=== PATIENT | female | born 1930 | race Caucasian/White ===

== ENCOUNTER 2017-02-11 13:15 | Emergency (ER) | payer OTHER ==
[~2017-02-11] VITALS: Ht 154.9 cm; Wt 54.0 kg
[~2017-02-11 13:15] MED LIST: ADVIN50050 INH; BIMA0.01 OPB; BUME1TAB PO; CLIN300C2 PO; COEN100C28 PO; DIGO0.122 PO; FEXO1TAB46 PO; GLUCTAB7 PO; IPRASOL4 INH; METR1GEL3 TOP; NTRGSL/4 UT; ONDA4TAB46 PO; OXGN; POLY335025 PO; SPIR25TA89 PO; TPRSR50 PO; TRMCR130WC TOP; WARF3TAB PO
[2017-02-11] MEDS ORDERED: SODIUM CHLORIDE 0.9% 1000ML 1,000 ML IV STA (13:39)
[2017-02-11 13:42] VITALS: O2SAT 93
[2017-02-11 13:52] VITALS: TEMP 36.7; Ht 154.9 cm; Wt 54.0 kg
[2017-02-11] MEDS ORDERED: OPTIRAY 320 IV PRN (14:00)
--- NOTE | 2017-02-11 14:05 | DIAGNOSTIC IMAGING REPORT ---
CHEST ONE VIEW PORTABLE CLINICAL HISTORY: EVALUATE FOR TRAUMA/INJURY pain COMPARISON STUDY: No previous studies for comparison. FINDINGS: Moderate stable cardiomegaly. Tortuosity thoracic aorta. Chronic platelike atelectasis left midlung. Lungs otherwise appear clear. IMPRESSION: Stable moderate cardiomegaly. Otherwise negative study Electronically signed by: Carlos Enrique Valentino M.D. 02/11/2017 2:04 PM Dictated Date/Time: 02/11/2017 2:03 PM
--- NOTE | 2017-02-11 14:20 | DIAGNOSTIC IMAGING REPORT ---
LEFT HAND MIN 3 VIEWS ROUTINE CLINICAL HISTORY: left hand pain s/p fall pain COMPARISON: None. DISCUSSION: Severe degenerative change throughout. No acute bony abnormality. Mild soft tissue edema. Study specifically negative for fracture. IMPRESSION: Severe degenerative change. Mild soft tissue edema. No acute bony abnormality. Electronically signed by: Carlos Enrique Valentino M.D. 02/11/2017 2:19 PM Dictated Date/Time: 02/11/2017 2:17 PM
[2017-02-11 14:30] LABS: BASO % 0.5 %; BASO ABS # 0.04 K/uL (0-0.2); COMPLETE YES; EOS % 1.4 %; HEMATOCRIT 40.9 % (37-47); IG% 0.5 %; LYMPH % 17.3 %; LYMPH ABS # 1.27 K/uL (1.2-3.4); MEAN CELL VOLUME 93.6 fL (80-100); MEAN CORPUSCULAR HEMOGLOBIN 31.4 pg (25-34); MEAN CORPUSCULAR HGB CONC 33.5 g/dl (32-36); MEAN PLATELET VOLUME 11.8 fL (7.4-10.4); NEUT % 72.3 %; PLATELET COUNT 157 K/uL (130-400); RED BLOOD COUNT 4.37 M/uL (4.2-5.4); WHITE BLOOD COUNT 7.36 K/uL (4.8-10.8)
[2017-02-11 14:36] LABS: ISTAT CREATININE 0.8 mg/dl (0.6-1.3); ISTAT HEMOGLOBIN 14.6 g/dl (12.0-16.0); ISTAT IONIZED CALCIUM 1.24 mmol/l (1.12-1.32)
[2017-02-11 14:45] LABS: PARTIAL THROMBOPLASTIN RATIO 1.8; PROTHROMBIN TIME (PATIENT) 48.2 SECONDS (9.0-12.0)
[2017-02-11 14:48] LABS: BUN/CREATININE RATIO 25.5 (10-20); CALCIUM 9.1 mg/dl (8.5-10.1); CREATININE 0.81 mg/dl (0.60-1.20)
--- NOTE | 2017-02-11 15:10 | DIAGNOSTIC IMAGING REPORT ---
CT HEAD WITHOUT CONTRAST (CT) CLINICAL HISTORY: Head trauma. Headache. Nausea. Vomiting. COMPARISON STUDY: 06/20/2016 TECHNIQUE: Axial CT of the brain is performed from the vertex to the skull base. IV contrast was not administered for this examination. CT DOSE: FINDINGS: No intra or extra-axial mass lesions are visualized. There is no CT evidence of acute cortical infarction. There is no evidence of midline shift. There is no acute hemorrhage. No calvarial fractures are visualized. There are patchy white matter hypodensities likely on a small vessel basis. There is no evidence of pathologic ventricular dilatation. There is no evidence of acute sinusitis IMPRESSION: No acute intracranial findings Electronically signed by: Iftikhar Davis M.D. 02/11/2017 3:09 PM Dictated Date/Time: 02/11/2017 3:08 PM
--- NOTE | 2017-02-11 15:11 | DIAGNOSTIC IMAGING REPORT ---
CERVICAL SPINE CT CT DOSE: HISTORY: Trauma. Pain. EVALUATE FOR TRAUMA/INJURY TECHNIQUE: Multiaxial CT images of the cervical spine were performed and reformatted in the sagittal and coronal plane without the use of contrast. COMPARISON: None. FINDINGS: No fractures. No subluxation. Prevertebral soft tissues and the C1-C2 interval are intact. No pneumothorax. Degenerative disc change throughout IMPRESSION: No fractures within the cervical spine. Degenerative disc change throughout Electronically signed by: Carlos Enrique Valentino M.D. 02/11/2017 3:10 PM Dictated Date/Time: 02/11/2017 3:09 PM
--- NOTE | 2017-02-11 15:15 | DIAGNOSTIC IMAGING REPORT ---
CT ABD/PELVIS IV CONTRAST ONLY CLINICAL HISTORY: Left-sided abdominal pain status post trauma. Patient on Coumadin. COMPARISON STUDY: 10/25/2014 TECHNIQUE: Following the IV administration of 94 mL of [id number], CT scan of the abdomen and pelvis was performed from the lung bases to the proximal femurs. Images are reviewed in the axial, sagittal, and coronal planes. IV contrast was administered without complication. CT DOSE: 1583.73 mGy.cm FINDINGS: Lower chest: The heart is enlarged. There is mild basilar atelectasis. There are trace pleural effusions. Liver: There is a 14 mm hypodensity within the right hepatic lobe similar to the prior study. This likely represents a cyst. There is no CT evidence of acute hepatic injury. Gallbladder: Surgically absent Spleen: Normal in size and attenuation. Pancreas: Unremarkable. Adrenal glands: Unremarkable. Kidneys: There is no evidence of acute renal injury. No solid renal masses are visualized. There is no hydronephrosis. There is a nonobstructing 2 mm right renal calculus. Bowel: There are no transition zones indicate bowel obstruction. There is mild fecal retention. There is no acute diverticulitis. No acute inflammatory changes are visualized. Peritoneum: There is no intraperitoneal free air or abdominal ascites. Vasculature: The abdominal aorta is normal in course and caliber. Adenopathy: None. Pelvic viscera: The uterus appears surgically absent. Skeletal structures: There are postsurgical changes of a prior left hip pinning. The bones are osteopenic. There is an old severe T12 compression fracture. There is an old T10 vertebral body compression fracture. IMPRESSION: 1. No evidence of acute intra-abdominal or pelvic injury. Electronically signed by: Iftikhar Davis M.D. 02/11/2017 3:13 PM Dictated Date/Time: 02/11/2017 3:09 PM
[2017-02-11 15:32] LABS: INR 4.2 (0.9-1.1)
--- NOTE | 2017-02-11 15:34 | DIAGNOSTIC IMAGING REPORT ---
CHEST CT WITH CONTRAST CT DOSE: HISTORY: Left-sided chest pain. Trauma TECHNIQUE: Multiaxial CT images of the chest were performed following the intravenous administration of contrast. COMPARISON: Chest CT 10/06/2013. FINDINGS: There are severe compression deformities at T10 and T12. The T10 compression deformity demonstrates 4 mm of retropulsion of the posterior inferior corner with mild to moderate central canal narrowing. The T12 compression deformity also demonstrates 4 mm of retropulsion of the posterior superior corner with mild to moderate central canal narrowing. These are unchanged from the 11/20/2015 chest x-ray and are therefore considered to be old. Slight deformity within the left anterior eighth rib. This is consistent within age-indeterminate fracture. No pneumothorax. Punctate calcified granuloma within the left lung apex. Linear density within the lingula and right lower lobe favor subsegmental atelectasis. Mild dependent changes seen at the lung bases. Mosaic attenuation within the lungs suggestive of mild air trapping. A few additional scattered calcified granulomas. Trace pleural effusions. The heart is moderately enlarged. No evidence for an aortic dissection. The main pulmonary arteries are patent. No mediastinal or hilar lymphadenopathy. IMPRESSION: 1. Slight deformity within the left anterior eighth rib consistent with an age-indeterminate fracture. 2. No pneumothorax. 3. Trace bilateral pleural effusions. 4. Old T10 and T12 compression deformities resulting in mild to moderate central canal narrowing due to the retropulsion. This remains unchanged. 5. Moderate cardiomegaly, unchanged. Electronically signed by: Tanner Millan M.D. 02/11/2017 3:32 PM Dictated Date/Time: 02/11/2017 3:21 PM
[2017-02-11] MEDS ORDERED: XYLOCAINE 1%/SOD BICARB 20 ML VIAL INFIL ONE (15:45)
[2017-02-11 17:35] VITALS: BP 132/99; PULSE 72; O2SAT 94
--- NOTE | 2017-02-11 17:37 | EMERGENCY ROOM VISIT NOTE ---
History Report prepared by Mendez: Ilan Taylor Under the Supervision of: Dr. Chano Wagner D.O. First contact with patient: 13:26 Chief Complaint: FALL Stated Complaint: FALL/ RIB PAIN/ KNEE PAIN/ HAND PAIN History of Present Illness The patient is a 86 year old female who presents to the Emergency Room with complaints of a sudden fall occurring prior to arrival. She currently rates her discomfort as a 5/10 in severity. The patient states that she was bending over to get her cane this morning, and she fell and hit her left side and her head. The patient states that she is having left rib pain and a headache which is typical for her. The patient states that she also hit her left knee and left hand. She states that she is currently on Coumadin, and she has had her hip and both knees replaced. Pt denies change in vision, neck pain, fevers, chest pain, shortness of breath, nausea, vomiting, diarrhea, pain with urination, and melena. Source of History: patient Onset: prior to arrival Position: other (global) Quality: other (fall) Timing: other (sudden) Associated Symptoms: + headache, No neck pain Note: Associated symptoms: Left knee, hand, and rib pain Review of Systems See HPI for pertinent positives & negatives. A total of 10 systems reviewed and were otherwise negative. 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 (6) Migraine (7) Nocturnal hypoxemia (8) Osteoporosis (9) Raynaud's phenomenon (10) Right heart failure Surgical Problems: (1) H/O oophorectomy (2) H/O thumb surgery (3) H/O: hysterectomy (4) History of cholecystectomy (5) Hx of cataract surgery (6) S/P appendectomy (7) S/P left knee arthroscopy (8) S/P right knee arthroscopy Family History Brain tumor MOTHER Hodgkin's lymphoma BROTHER Social History Smoking Status: Never Smoker Alcohol Use: none Drug Use: none Marital Status: Housing Status: lives alone Occupation Status: retired Current/Historical Medications Scheduled Bimatoprost (Lumigan), 1 DROP OPB HS Bumetanide (Bumex), 0.5 MG PO DAILY Clindamycin Hcl (Cleocin), 300 MG PO before dental work Coenzyme Q10 (Ubidecarenone) (Co Q10), 100 MG PO DAILY Digoxin (Lanoxin), 0.125 MG PO 5XWK Fexofenadine Hcl (Macarena), 180 MG PO DAILY Fluticasone Prop/Salmeterol (Advair Diskus 500-50 Mcg/Dose), 1 PUFF INH BID Ymnfomiyqrn-Ixiqcywqyhz-Oha C- (Glucosamine Chondroitin), 1 TABLET PO DAILY Ipratropium-Albuterol (Duoneb), 1 TREATMENT INH BID Metoprolol Succinate (Metoprolol Succinate ER), 50 MG PO DAILY Metronidazole Hcl (Metrogel), 1 APPLN TOP QAM Oxygen (Oxygen), 2 LITERS NA HS Polyethylene Glycol 3350 (Miralax), 1 TBS PO BID Spironolactone (Aldactone), 25 MG PO DAILY Warfarin Sodium (Coumadin), 3 MG PO 6XWK Warfarin Sodium (Coumadin), 1.5 MG PO WK Scheduled PRN Ipratropium-Albuterol (Duoneb), 1 TREATMENT INH QID PRN for asthma Nitroglycerin (Nitrostat), 0.4 MG UT UD PRN for Chest Pain Ondansetron Hcl (Zofran), 4 MG PO Q6H PRN for Nausea Triamcinolone Acet (Aristocort 0.1%), 1 APPLN TOP BID PRN for impairment of skin Allergies Coded Allergies: Celecoxib (Verified Allergy, Intermediate, rash, blisters in mouth, eyes itching, 02/11/17) Ciprofloxacin (Verified Allergy, Intermediate, rash, 02/11/17) Famciclovir (Verified Allergy, Intermediate, RASH, 02/11/17) Fluticasone (Verified Allergy, Intermediate, RASH, 02/11/17) Furosemide (Verified Allergy, Intermediate, RASH, 02/11/17) Metaxalone (Verified Allergy, Intermediate, RASH, 02/11/17) RASH Naproxen (Verified Allergy, Intermediate, RASH, 02/11/17) RASH Oxycodone (Verified Allergy, Intermediate, RASH ON NECK, 02/11/17) Sulfa Antibiotics (Verified Allergy, Intermediate, HIVES, 02/11/17) Acetaminophen (Verified Allergy, Mild, RASH, 02/11/17) RASH Carboxymethylcellulose (Verified Allergy, Mild, ITCHINESS AND REDNESS OF EYES, 02/11/17) Levofloxacin (Verified Allergy, Mild, RASH, 02/11/17) RASH PER PT/MIGUEL ON PCU - HAS TAKEN CIPRO IN PAST Aspartame (Verified Allergy, Unknown, 'passed out after taking', 02/11/17) Cefdinir (Verified Allergy, Unknown, unknown, 02/11/17) Diphenhydramine (Verified Allergy, Unknown, 'passed out after taking', 02/11) Penicillins (Verified Allergy, Unknown, RASH, 02/11/17) RASH Potassium Chloride (Verified Allergy, Unknown, RASH, 02/11/17) Pseudoephedrine (Verified Allergy, Unknown, 'passed out after taking', 02/11) Sodium Benzoate (Verified Allergy, Unknown, unknown, 02/11/17) [place] (Unverified Allergy, Unknown, RASH, 02/11/17) Sulfasalazine (Verified Allergy, Unknown, rash, 02/11/17) Tomato (Unverified Allergy, Unknown, RASH, 02/11/17) Valacyclovir (Verified Allergy, Unknown, RASH, 02/11/17) Adhesives (Verified Adverse Reaction, Mild, skin irritation, 02/11/17) Brimonidine (Verified Adverse Reaction, Mild, RED EYES, 02/11/17) RED EYES Brompheniramine (Verified Adverse Reaction, Mild, 'passed out' per pt, 02/11) Ketorolac (Verified Adverse Reaction, Mild, RED EYES, 02/11/17) RED EYES Pneumococcal Vaccines (Verified Adverse Reaction, Mild, LOCAL SWELLING, 02/11/17) Dairy (Verified Adverse Reaction, Unknown, bloating,nausea,diarrhea, ) Lactose (Verified Adverse Reaction, Unknown, GI upset, 02/11/17) Physical Exam Vital Signs Date Time Temp Pulse Resp B/P Pulse Ox O2 Delivery O2 Flow Rate FiO2 02/11/17 15:39 90 16 117/88 94 Room Air 02/11/17 13:52 36.7 87 18 134/88 93 Room Air 02/11/17 13:42 93 Room Air 02/11/17 13:42 93 Room Air 02/11/17 13:27 77 Physical Exam GENERAL: Chronically ill appearing, disheveled HEAD: normal cephalic, atraumatic EYE EXAM: normal conjunctiva, PERRL and EOM's grossly intact OROPHARYNX: no exudate, no erythema, lips, buccal mucosa, and tongue normal and mucous membranes are moist EARS: TMs clear b/l NECK: supple, no nuchal rigidity, no adenopathy, non-tender CHEST: Mild tenderness to palpation in the chest over the left lower ribs. No bruising. Stable to compression anteriorly and posteriorly LUNGS: clear to auscultation. Normal chest wall mechanics HEART: no murmurs, S1 normal and S2 normal ABDOMEN: abdomen soft, non-tender, normo-active bowel sounds, no masses, no rebound or guarding. PELVIS: stable to compression anteriorly and posteriorly BACK: Back is symmetrical on inspection and there is no deformity, no midline tenderness, no CVA tenderness. UPPER EXTREMITIES: Old bruising in the upper extremities. Laceration at the base of the 5th and 4th MCP joint. Full active and passive range of motion of all joints without tenderness to palpation LOWER EXTREMITIES: Old bruising in the lower extremities. Left knee has a 2cm laceration over the patella. Full active and passive range of motion of all joints without tenderness to palpation NEURO EXAM: Normal sensorium, cranial nerves II-XII grossly intact, normal speech, no gross weakness of arms, no gross weakness of legs. GCS: 15. Medical Decision & Procedures ER Provider Diagnostic Interpretation: Xray results per the radiologist and my interpretation. Other results have been interpreted by the radiologist and reviewed by me. CT HEAD WITHOUT CONTRAST (CT) CLINICAL HISTORY: Head trauma. Headache. Nausea. Vomiting. COMPARISON STUDY: 06/20/2016 TECHNIQUE: Axial CT of the brain is performed from the vertex to the skull base. IV contrast was not administered for this examination. CT DOSE: FINDINGS: No intra or extra-axial mass lesions are visualized. There is no CT evidence of acute cortical infarction. There is no evidence of midline shift. There is no acute hemorrhage. No calvarial fractures are visualized. There are patchy white matter hypodensities likely on a small vessel basis. There is no evidence of pathologic ventricular dilatation. There is no evidence of acute sinusitis IMPRESSION: No acute intracranial findings Electronically signed by: Iftikhar Davis M.D. 02/11/2017 3:09 PM Dictated Date/Time: 02/11/2017 3:08 PM CHEST ONE VIEW PORTABLE CLINICAL HISTORY: EVALUATE FOR TRAUMA/INJURY pain COMPARISON STUDY: No previous studies for comparison. FINDINGS: Moderate stable cardiomegaly. Tortuosity thoracic aorta. Chronic platelike atelectasis left midlung. Lungs otherwise appear clear. IMPRESSION: Stable moderate cardiomegaly. Otherwise negative study Electronically signed by: Carlos Enrique Valentino M.D. 02/11/2017 2:04 PM Dictated Date/Time: 02/11/2017 2:[address] WITH CONTRAST CT DOSE: HISTORY: Left-sided chest pain. Trauma TECHNIQUE: Multiaxial CT images of the chest were performed following the intravenous administration of contrast. COMPARISON: Chest CT 10/06/2013. FINDINGS: There are severe compression deformities at T10 and T12. The T10 compression deformity demonstrates 4 mm of retropulsion of the posterior inferior corner with mild to moderate central canal narrowing. The T12 compression deformity also demonstrates 4 mm of retropulsion of the posterior superior corner with mild to moderate central canal narrowing. These are unchanged from the 11/20/2015 chest x-ray and are therefore considered to be old. Slight deformity within the left anterior eighth rib. This is consistent within age-indeterminate fracture. No pneumothorax. Punctate calcified granuloma within the left lung apex. Linear density within the lingula and right lower lobe favor subsegmental atelectasis. Mild dependent changes seen at the lung bases. Mosaic attenuation within the lungs suggestive of mild air trapping. A few additional scattered calcified granulomas. Trace pleural effusions. The heart is moderately enlarged. No evidence for an aortic dissection. The main pulmonary arteries are patent. No mediastinal or hilar lymphadenopathy. IMPRESSION: 1. Slight deformity within the left anterior eighth rib consistent with an age-indeterminate fracture. 2. No pneumothorax. 3. Trace bilateral pleural effusions. 4. Old T10 and T12 compression deformities resulting in mild to moderate central canal narrowing due to the retropulsion. This remains unchanged. 5. Moderate cardiomegaly, unchanged. Electronically signed by: Tanner Millan M.D. 02/11/2017 3:32 PM Dictated Date/Time: 02/11/2017 3:[address] DOSE: HISTORY: Trauma. Pain. EVALUATE FOR TRAUMA/INJURY TECHNIQUE: Multiaxial CT images of the cervical spine were performed and reformatted in the sagittal and coronal plane without the use of contrast. COMPARISON: None. FINDINGS: No fractures. No subluxation. Prevertebral soft tissues and the C1-C2 interval are intact. No pneumothorax. Degenerative disc change throughout IMPRESSION: No fractures within the cervical spine. Degenerative disc change throughout Electronically signed by: Carlos Enrique Valentino M.D. 02/11/2017 3:10 PM Dictated Date/Time: 02/11/2017 3:09 PM LEFT HAND MIN 3 VIEWS ROUTINE CLINICAL HISTORY: left hand pain s/p fall pain COMPARISON: None. DISCUSSION: Severe degenerative change throughout. No acute bony abnormality. Mild soft tissue edema. Study specifically negative for fracture. IMPRESSION: Severe degenerative change. Mild soft tissue edema. No acute bony abnormality. Electronically signed by: Carlos Enrique Valentino M.D. 02/11/2017 2:19 PM Dictated Date/Time: 02/11/2017 2:[address] ABD/PELVIS IV CONTRAST ONLY CLINICAL HISTORY: Left-sided abdominal pain status post trauma. Patient on Coumadin. COMPARISON STUDY: 10/25/2014 TECHNIQUE: Following the IV administration of 94 mL of [id number], CT scan of the abdomen and pelvis was performed from the lung bases to the proximal femurs. Images are reviewed in the axial, sagittal, and coronal planes. IV contrast was administered without complication. CT DOSE: 1583.73 mGy.cm FINDINGS: Lower chest: The heart is enlarged. There is mild basilar atelectasis. There are trace pleural effusions. Liver: There is a 14 mm hypodensity within the right hepatic lobe similar to the prior study. This likely represents a cyst. There is no CT evidence of acute hepatic injury. Gallbladder: Surgically absent Spleen: Normal in size and attenuation. Pancreas: Unremarkable. Adrenal glands: Unremarkable. Kidneys: There is no evidence of acute renal injury. No solid renal masses are visualized. There is no hydronephrosis. There is a nonobstructing 2 mm right renal calculus. Bowel: There are no transition zones indicate bowel obstruction. There is mild fecal retention. There is no acute diverticulitis. No acute inflammatory changes are visualized. Peritoneum: There is no intraperitoneal free air or abdominal ascites. Vasculature: The abdominal aorta is normal in course and caliber. Adenopathy: None. Pelvic viscera: The uterus appears surgically absent. Skeletal structures: There are postsurgical changes of a prior left hip pinning. The bones are osteopenic. There is an old severe T12 compression fracture. There is an old T10 vertebral body compression fracture. IMPRESSION: 1. No evidence of acute intra-abdominal or pelvic injury. Electronically signed by: Iftikhar Davis M.D. 02/11/2017 3:13 PM Dictated Date/Time: 02/11/2017 3:09 PM Laboratory Results 02/11/17 14:15 Red Blood Count 4.37, Mean Corpuscular Volume 93.6, Mean Corpuscular Hemoglobin 31.4, Mean Corpuscular Hemoglobin Concent 33.5, Mean Platelet Volume 11.8, Neutrophils (%) (Auto) 72.3, Lymphocytes (%) (Auto) 17.3, Monocytes (%) (Auto) 8.0, Eosinophils (%) (Auto) 1.4, Basophils (%) (Auto) 0.5, Neutrophils # (Auto) 5.32, Lymphocytes # (Auto) 1.27, Monocytes # (Auto) 0.59, Eosinophils # (Auto) 0.10, Basophils # (Auto) 0.04 02/11/17 14:15 Test 02/11/17 14:13 02/11/17 14:15 02/11/17 14:23 Bedside Glucose 91 mg/dl (70-90) White Blood Count 7.36 K/uL (4.8-10.8) Red Blood Count 4.37 M/uL (4.2-5.4) Hemoglobin 13.7 g/dL (12.0-16.0) Hematocrit 40.9 % (37-47) Mean Corpuscular Volume 93.6 fL (80-100) Mean Corpuscular Hemoglobin 31.4 pg (25-34) Mean Corpuscular Hemoglobin Concent 33.5 g/dl (32-36) Platelet Count 157 K/uL (130-400) Mean Platelet Volume 11.8 fL (7.4-10.4) Neutrophils (%) (Auto) 72.3 % Lymphocytes (%) (Auto) 17.3 % Monocytes (%) (Auto) 8.0 % Eosinophils (%) (Auto) 1.4 % Basophils (%) (Auto) 0.5 % Neutrophils # (Auto) 5.32 K/uL (1.4-6.5) Lymphocytes # (Auto) 1.27 K/uL (1.2-3.4) Monocytes # (Auto) 0.59 K/uL (0.11-0.59) Eosinophils # (Auto) 0.10 K/uL (0-0.5) Basophils # (Auto) 0.04 K/uL (0-0.2) RDW Standard Deviation 52.8 fL (36.4-46.3) RDW Coefficient of Variation 15.5 % (11.5-14.5) Immature Granulocyte % (Auto) 0.5 % Immature Granulocyte # (Auto) 0.04 K/uL (0.00-0.02) Prothrombin Time 48.2 SECONDS (9.0-12.0) Prothromb Time International Ratio 4.2 (0.9-1.1) Activated Partial Thromboplast Time 45.5 SECONDS (21.0-31.0) Partial Thromboplastin Ratio 1.8 Est Creatinine Clear Calc Drug Dose 36.9 ml/min Estimated GFR () 75.7 Estimated GFR (Non- 65.3 BUN/Creatinine Ratio 25.5 (10-20) Calcium Level 9.1 mg/dl (8.5-10.1) Total Bilirubin 0.8 mg/dl (0.2-1) Direct Bilirubin 0.2 mg/dl (0-0.2) Aspartate Amino Transf (AST/SGOT) 21 U/L (15-37) Alanine Aminotransferase (ALT/SGPT) 27 U/L (12-78) Alkaline Phosphatase 52 U/L (45-117) Total Protein 6.9 gm/dl (6.4-8.2) Albumin 3.5 gm/dl (3.4-5.0) Bedside Hemoglobin 14.6 g/dl (12.0-16.0) Bedside Hematocrit 43 % (37-47) Bedside Sodium 136 mEq/L (135-144) Bedside Potassium 4.0 mEq/L (3.3-5.0) Bedside Chloride 98 mEq/L (101-112) Bedside Total CO2 24 mEq/l (24-31) Anion Gap 19.0 mmol/L (16-25) Bedside Blood Urea Nitrogen 22 mg/dl (7-18) Bedside Creatinine 0.8 mg/dl (0.6-1.3) Bedside Glucose (other) 99 mg/dl (70-99) Bedside Ionized Calcium (Mary) 1.24 mmol/l (1.12-1.32) Laboratory results per my review. Medications Administered Medications (Trade) Dose Ordered Sig/Shashank Route Start Time Stop Time Status Last Admin Dose Admin Sodium Chloride (Nss 1000ml) 1,000 ml @ 999 mls/hr Q1H1M STAT IV 02/11/17 13:39 02/11/17 14:39 DC 02/11/17 14:16 999 MLS/HR ED Course ED COURSE: Vital signs were reviewed and showed normal vitals The patients medical record was reviewed The above diagnostic studies were performed and reviewed. ED treatments and interventions as stated above. 1326: The patient was evaluated in room B11. A complete history and physical examination was performed. 1339: Sodium Chloride 1000 ml @ 999 mls/hr IV 1545: Buffered Lidocaine 1% Inj 20ml INFIL 1650: I reevaluated the patient, and she was resting. 1720: Upon reevaluation, the patient is feeling better.I discussed my findings with the patient and she understands and agrees with the treatment plan. Based on the patients age, coexisting illnesses, exam and lab findings the decision to treat as an outpatient was made. The patient remained stable while under my care. The patient appeared well at the time of discharge. Medical Decision Differential diagnoses include major intracranial, cervical, spinal, thoracic, abdominal, pelvic and neurologic injury. Fracture, contusion, sprain, strain, laceration, abrasions included as well. Patient is an 86-year-old female who presents the ER following a mechanical fall. She complains of left-sided chest pain. She does take Coumadin. CT of her head and cervical spine were negative. CT of her chest shows a questionable acute left-sided rib fracture. CT of her abdomen pelvis was unremarkable. X-rays of her left hand show no acute fractures. Lacerations were repaired by my PA. Her tetanus is up-to-date. Labs show no significant leukocytosis or anemia. BMP was unremarkable along with LFTs, bilirubin and her INR was supratherapeutic at 4.2. EKG shows A. fib. She is updated regards to her elevated INR. I instructed her not take her Coumadin tonight. She should follow-up with her Coumadin clinic in regards to her next dosing. Discussed with Pt concerning signs and symptoms to watch out for. Pt was instructed to follow up with their PCP and discussed with the patient their option to return to the ED at anytime for persistent or worsening symptoms. The appropriate anticipatory guidance and out-patient management, including indications for return to the emergency department, were explained at length to the patient and understood. Impression Primary Impression: Fall Additional Impressions: Laceration Contusion, knee Rib fracture Scribe Attestation The scribe's documentation has been prepared under my direction and personally reviewed by me in its entirety. I confirm that the note above accurately reflects all work, treatment, procedures, and medical decision making performed by me. Departure Information Dispostion Home / Self-Care Referrals Carlos Enrique Yu M.D. (PCP) Forms HOME CARE DOCUMENTATION FORM, IMPORTANT VISIT INFORMATION Patient Instructions ED Laceration All, My [facility] Additional Instructions Please follow up with your primary care doctor with in the next 24 hours. Any worsening of your symptoms, please return to the ED immediately. This includes fevers greater than 100.4, recurrence of the falls, weakness or numbness in arms or legs, confusion, or any other concerning signs or symptoms from your standpoint. Please have sutures removed in 7-10 days. If you have any surrounding redness or discharge from the wound please return to the ER immediately. Problem Qualifiers Primary Impression: Fall Encounter type: initial encounter Qualified Codes: W19.XXXA - Unspecified fall, initial encounter Additional Impressions: Contusion, knee Encounter type: initial encounter Laterality: left Qualified Codes: S80.02XA - Contusion of left knee, initial encounter Rib fracture Encounter type: initial encounter Rib fracture type: single rib Fracture type: closed Laterality: left Qualified Codes: S22.32XA - Fracture of one rib, left side, initial encounter for closed fracture
--- NOTE | 2017-02-11 23:01 | EMERGENCY ROOM VISIT NOTE ---
ED Visit Note Emergency Department Procedure Note I was asked to see Ms. Nolan by Dr. Chano Wagner, emergency medicine, for wound closure she sustained in a fall. Please see Dr. Wagner his notes and orders for full information about her ED visit. Wound Repair: Complexity: Basic Description: Laceration #1: Left Hand: Combination of skin tear and 2.2 cm full- thickness laceration over the posterior hand and in the webspace between the ring and little finger. Laceration #2: Left Knee: Skin tear over the anterior patella measuring approximately 1.5 cm. Verbal consent was obtained after the risks and benefits were explained. The skin was prepped with betadine and a sterile field set. Wound edges of the full-thickness wound was anesthetized with 1.9 ml buffered 1 % lidocaine. The wounds were explored for foreign bodies and none found. Copious irrigation was performed using sterile saline. With direct pressure the bleeding subsided. Debridement was not performed. The wound edges of the full-thickness wound were approximated using 5-0 Ethilon with 5 simple interrupted sutures. The wound edges of the skin tears involving the hand and knee were approximated with Steri-Strips. Hemostasis and excellent approximation was achieved. Sterile dressing applied. No complications and the patient tolerated the procedure well.
== END 2017-02-11 18:01 | disposition home or self-care (01) ==
LOC: EDBD 13:15 → C.EDB 13:16
DX: S22.32XA Fracture of one rib, left side, initial encounter for closed fracture (principal); S80.02XA Contusion of left knee, initial encounter; S61.412A Laceration without foreign body of left hand, initial encounter; W18.09XA Striking against other object with subsequent fall, initial encounter; I48.91 Unspecified atrial fibrillation; I12.9 Hypertensive chronic kidney disease with stage 1 through stage 4 chronic kidney disease, or unspecified chronic kidney disease; I10 Essential (primary) hypertension; J44.9 Chronic obstructive pulmonary disease, unspecified; M81.0 Age-related osteoporosis without current pathological fracture; Z79.01 Long term (current) use of anticoagulants; Z90.710 Acquired absence of both cervix and uterus; Z90.49 Acquired absence of other specified parts of digestive tract; Z98.890 Other specified postprocedural states; Z79.899 Other long term (current) drug therapy; Z88.0 Allergy status to penicillin; Z88.2 Allergy status to sulfonamides; Z88.5 Allergy status to narcotic agent; Z88.8 Allergy status to other drugs, medicaments and biological substances; Z91.018 Allergy to other foods

== ENCOUNTER 2017-05-25 12:52 | Emergency (ER) | payer OTHER ==
[~2017-05-25] VITALS: Ht 162.6 cm; Wt 56.7 kg
[~2017-05-25 12:52] MED LIST changes: -ONDA4TAB46 PO
[2017-05-25 12:59] VITALS: TEMP 37
[2017-05-25 13:56] VITALS: Ht 162.6 cm; Wt 56.7 kg
[2017-05-25 14:22] LABS: BASO % 0.6 %; BASO ABS # 0.04 K/uL (0-0.2); COMPLETE YES; EOS % 3.7 %; HEMATOCRIT 41.5 % (37-47); IG% 0.6 %; LYMPH % 20.3 %; LYMPH ABS # 1.37 K/uL (1.2-3.4); MEAN CELL VOLUME 95.6 fL (80-100); MEAN CORPUSCULAR HEMOGLOBIN 31.1 pg (25-34); MEAN CORPUSCULAR HGB CONC 32.5 g/dl (32-36); MEAN PLATELET VOLUME 11.6 fL (7.4-10.4); MONO % 7.4 %; NEUT % 67.4 %; PLATELET COUNT 149 K/uL (130-400); RED BLOOD COUNT 4.34 M/uL (4.2-5.4); WHITE BLOOD COUNT 6.75 K/uL (4.8-10.8)
--- NOTE | 2017-05-25 14:28 | DIAGNOSTIC IMAGING REPORT ---
CHEST ONE VIEW PORTABLE CLINICAL HISTORY: EVALUATE WEAKNESS dyspnea COMPARISON STUDY: 02/11/2017 FINDINGS: Moderate cardiomegaly. Prominent pulmonary vasculature. Diaphragms are smooth. Calcific granuloma right base unchanged IMPRESSION: Mild congestive failure The above report was generated using voice recognition software. It may contain grammatical, syntax or spelling errors. Electronically signed by: Carlos Enrique Valentino M.D. 05/25/2017 2:26 PM Dictated Date/Time: 05/25/2017 2:26 PM
[2017-05-25 14:37] LABS: INR 2.3 (0.9-1.1); PARTIAL THROMBOPLASTIN RATIO 1.5; PROTHROMBIN TIME (PATIENT) 25.9 SECONDS (9.0-12.0)
[2017-05-25 14:48] LABS: ALT/SGPT 27 U/L (12-78); AST/SGOT 28 U/L (15-37); BLOOD UREA NITROGEN 18 mg/dl (7-18); BUN/CREATININE RATIO 19.4 (10-20); CALCIUM 8.6 mg/dl (8.5-10.1); CARBON DIOXIDE 29 mmol/L (21-32); CHLORIDE 106 mmol/L (98-107); CREATININE 0.95 mg/dl (0.60-1.20); GLUCOSE 97 mg/dl (70-99); MAGNESIUM 2.3 mg/dl (1.8-2.4); POTASSIUM 3.9 mmol/L (3.5-5.1); SODIUM 142 mmol/L (136-145)
[2017-05-25] MEDS ORDERED: LNX125 PO (14:53)
[2017-05-25] MEDS ORDERED: MTRG45 (14:53)
[2017-05-25 14:56] LABS: ALKALINE PHOSPHATASE 48 U/L (45-117)
[2017-05-25 15:30] LABS: URINE APPEARANCE CLEAR (CLEAR); URINE BILIRUBIN NEG (NEG); URINE COLOR YELLOW; URINE EPITHELIAL CELL AUTO >30 /lpf (0-5); URINE NITRITE NEG (NEG); URINE PH 7.5 (4.5-7.5); URINE SPECIFIC GRAVITY 1.016 (1.000-1.030); UROBILINOGEN NEG (NEG)
--- NOTE | 2017-05-25 15:33 | EMERGENCY ROOM VISIT NOTE ---
History Report prepared by Mendez: Alexandria Martinez Under the Supervision of: Dr. Erick Hogan M.D. First contact with patient: 13:24 Chief Complaint: LACERATION/CUT (NON-SUTURE) Stated Complaint: SKIN TEAR Nursing Triage Summary: Skin avulstion to right foot, 0.2 cm X 0.1 cm. 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 The patient came to the ED via ambulance from home. The patient states that she was preparing lunch when she dropped the knife and the handle hit her foot. She states that after that happened she checked her slipper for blood and noticed that it was wet. She had some difficulty ambulating after that secondary to her wet slippers. The patient put her feet on paper towels while she was eating lunch and the paper towels were wet after. She is also experiencing lower extremity edema that started 2-3 days ago and she also states that her bilateral legs are painful to the touch. She states that called the Tele-Nurse and they recommended coming into the ED for further evaluation so she called the ambulance. Pt denies LOC, headache, fevers, chills, diaphoresis, visual changes , neck pain, chest pain, nausea, vomiting, abdominal pain, back pain, melena, hematochezia, urinary symptoms, numbness, weakness, lymphadenopathy, rash, or other complaints. The patient denies standing a lot and states that she spends a lot of time in her recliner. She states that she only stood up to make lunch and then she sat at the counter to eat her lunch. The patient is also experiencing shortness of breath with exertion but she states that she has been experiencing that since she was diagnosed with congestive heart failure in 2007. The patient denies being on Lasix recently. The patient states that she is having some difficulty breathing because she feels like she has to cough to get enough air. The patient denies any increase in her salt intake as well as eating hot dogs regularly. The patient is on warfarin and last had her INR checked 3 weeks ago. She states that she is scheduled to have it checked again on Saturday. The patient also states that she is experiencing generalized ecchymosis. The patient does not wear compression stockings at home. The patient is on Bumex and states that she did not miss any doses recently. Source of History: patient Onset: GRANT MANAGER Position: foot (right) Quality: other (right foot wound) Timing: other (sudden) Associated Symptoms: + cough, + SOB (with exertion) Note: bilateral lower extremity edema, bilateral lower extremity pain Review of Systems See HPI for pertinent positives and negatives. A total of ten systems were reviewed and were otherwise negative. Past Medical & Surgical Medical Problems: (1) Chronic atrial fibrillation (2) COPD (chronic obstructive pulmonary disease) (3) Fracture of left hip requiring operative repair (4) HTN (hypertension) (5) shelter current use of anticoagulant therapy (6) Migraine (7) Nocturnal hypoxemia (8) Osteoporosis (9) Raynaud's phenomenon (10) Right heart failure Surgical Problems: (1) H/O oophorectomy (2) H/O thumb surgery (3) H/O: hysterectomy (4) History of cholecystectomy (5) Hx of cataract surgery (6) S/P appendectomy (7) S/P left knee arthroscopy (8) S/P right knee arthroscopy Family History Brain tumor MOTHER Hodgkin's lymphoma BROTHER Social History Smoking Status: Never Smoker Alcohol Use: none Drug Use: none Marital Status: Housing Status: lives alone Occupation Status: retired Current/Historical Medications Scheduled Bimatoprost (Lumigan), 1 DROP OPB HS Bumetanide (Bumex), 0.5 MG PO DAILY Clindamycin Hcl (Cleocin), 300 MG PO before dental work Coenzyme Q10 (Ubidecarenone) (Co Q10), 100 MG PO DAILY Digoxin (Digoxin), 0.125 MG PO 5XWK Fexofenadine Hcl (Macarena), 180 MG PO DAILY Fluticasone Prop/Salmeterol (Advair Diskus 500-50 Mcg/Dose), 1 PUFF INH BID Tsolwrpwkxt-Jtemfgmtkjl-Uoi C- (Glucosamine Chondroitin), 1 TABLET PO DAILY Home O2 Therapy (Oxygen), 2 LITERS NA HS Metoprolol Succinate (Metoprolol Succinate ER), 50 MG PO DAILY Polyethylene Glycol 3350 (Miralax), 1 TBS PO BID Spironolactone (Aldactone), 25 MG PO DAILY Warfarin Sodium (Coumadin), 3 MG PO 5XWK Warfarin Sodium (Coumadin), 1.5 MG PO 2XWK Scheduled PRN Ipratropium-Albuterol (Duoneb), 1 TREATMENT INH QID PRN for asthma Nitroglycerin (Nitrostat), 0.4 MG UT UD PRN for Chest Pain Triamcinolone Acet (Aristocort 0.1%), 1 APPLN TOP BID PRN for impairment of skin Miscellaneous Medications Metronidazole HCl (Metronidazole) Allergies Coded Allergies: Celecoxib (Verified Allergy, Intermediate, rash, blisters in mouth, eyes itching, 05/25/17) Ciprofloxacin (Verified Allergy, Intermediate, rash, 05/25/17) Famciclovir (Verified Allergy, Intermediate, RASH, 05/25/17) Fluticasone (Verified Allergy, Intermediate, RASH, 05/25/17) Furosemide (Verified Allergy, Intermediate, RASH, 05/25/17) Metaxalone (Verified Allergy, Intermediate, RASH, 05/25/17) RASH Naproxen (Verified Allergy, Intermediate, RASH, 05/25/17) RASH Oxycodone (Verified Allergy, Intermediate, RASH ON NECK, 05/25/17) Sulfa Antibiotics (Verified Allergy, Intermediate, HIVES, 05/25/17) Acetaminophen (Verified Allergy, Mild, RASH, 05/25/17) RASH Carboxymethylcellulose (Verified Allergy, Mild, ITCHINESS AND REDNESS OF EYES, 05/25/17) Levofloxacin (Verified Allergy, Mild, RASH, 05/25/17) RASH PER PT/MIGUEL ON PCU - HAS TAKEN CIPRO IN PAST Aspartame (Verified Allergy, Unknown, 'passed out after taking', 05/25/17) Cefdinir (Verified Allergy, Unknown, unknown, 05/25/17) Diphenhydramine (Verified Allergy, Unknown, 'passed out after taking', ) Penicillins (Verified Allergy, Unknown, RASH, 05/25/17) RASH Potassium Chloride (Verified Allergy, Unknown, RASH, 05/25/17) Pseudoephedrine (Verified Allergy, Unknown, 'passed out after taking', ) Sodium Benzoate (Verified Allergy, Unknown, unknown, 05/25/17) Vilas (Unverified Allergy, Unknown, RASH, 05/25/17) Sulfasalazine (Verified Allergy, Unknown, rash, 05/25/17) Tomato (Unverified Allergy, Unknown, RASH, 05/25/17) Valacyclovir (Verified Allergy, Unknown, RASH, 05/25/17) Adhesives (Verified Adverse Reaction, Mild, skin irritation, 05/25/17) Brimonidine (Verified Adverse Reaction, Mild, RED EYES, 05/25/17) RED EYES Brompheniramine (Verified Adverse Reaction, Mild, 'passed out' per pt, ) Ketorolac (Verified Adverse Reaction, Mild, RED EYES, 05/25/17) RED EYES Pneumococcal Vaccines (Verified Adverse Reaction, Mild, LOCAL SWELLING, ) Dairy (Verified Adverse Reaction, Unknown, bloating,nausea,diarrhea, ) Lactose (Verified Adverse Reaction, Unknown, GI upset, 05/25/17) Physical Exam Vital Signs Date Time Temp Pulse Resp B/P (MAP) Pulse Ox O2 Delivery O2 Flow Rate FiO2 05/25/17 14:37 72 05/25/17 13:57 Room Air 05/25/17 12:59 37.0 74 18 119/72 94 Room Air Physical Exam GENERAL: Awake, alert, well-appearing, in no distress HENT: Normocephalic, atraumatic. Oropharynx unremarkable. EYES: Normal conjunctiva. Sclera non-icteric. NECK: Supple. No nuchal rigidity. FROM. No JVD. RESPIRATORY: Clear to auscultation. CARDIAC: Regular rate, normal rhythm. Extremities warm and well perfused. Pulses equal. ABDOMEN: Soft, non-distended. No tenderness to palpation. No rebound or guarding. No masses. RECTAL: Deferred. MUSCULOSKELETAL: Chest examination reveals no tenderness. The back is symmetrical on inspection without obvious abnormality. There is no CVA tenderness to palpation. No joint edema. LOWER EXTREMITIES: Small skin tear on the top of the distal right foot just proximal to the fourth toe. Skin is dry in appearance on both feet. Calves are equal size bilaterally and non-tender. 1+ edema bilaterally. Chronic venous discoloration. NEURO: Normal sensorium. No sensory or motor deficits noted. SKIN: No rash or jaundice noted. Medical Decision & Procedures ER Provider Diagnostic Interpretation: Radiology results as stated below per my review and radiologist interpretation: CHEST ONE VIEW PORTABLE FINDINGS: Moderate cardiomegaly. Prominent pulmonary vasculature. Diaphragms are smooth. Calcific granuloma right base unchanged IMPRESSION: Mild congestive failure The above report was generated using voice recognition software. It may contain grammatical, syntax or spelling errors. Electronically signed by: Carlos Enrique Valentino M.D. 05/25/2017 2:26 PM Dictated Date/Time: 05/25/2017 2:26 PM Laboratory Results 05/25/17 14:10 Red Blood Count 4.34, Mean Corpuscular Volume 95.6, Mean Corpuscular Hemoglobin 31.1, Mean Corpuscular Hemoglobin Concent 32.5, Mean Platelet Volume 11.6, Neutrophils (%) (Auto) 67.4, Lymphocytes (%) (Auto) 20.3, Monocytes (%) (Auto) 7.4, Eosinophils (%) (Auto) 3.7, Basophils (%) (Auto) 0.6, Neutrophils # (Auto) 4.55, Lymphocytes # (Auto) 1.37, Monocytes # (Auto) 0.50, Eosinophils # (Auto) 0.25, Basophils # (Auto) 0.04 05/25/17 14:10 Test 05/25/17 14:10 05/25/17 15:02 05/25/17 15:16 White Blood Count 6.75 K/uL (4.8-10.8) Red Blood Count 4.34 M/uL (4.2-5.4) Hemoglobin 13.5 g/dL (12.0-16.0) Hematocrit 41.5 % (37-47) Mean Corpuscular Volume 95.6 fL (80-100) Mean Corpuscular Hemoglobin 31.1 pg (25-34) Mean Corpuscular Hemoglobin Concent 32.5 g/dl (32-36) Platelet Count 149 K/uL (130-400) Mean Platelet Volume 11.6 fL (7.4-10.4) Neutrophils (%) (Auto) 67.4 % Lymphocytes (%) (Auto) 20.3 % Monocytes (%) (Auto) 7.4 % Eosinophils (%) (Auto) 3.7 % Basophils (%) (Auto) 0.6 % Neutrophils # (Auto) 4.55 K/uL (1.4-6.5) Lymphocytes # (Auto) 1.37 K/uL (1.2-3.4) Monocytes # (Auto) 0.50 K/uL (0.11-0.59) Eosinophils # (Auto) 0.25 K/uL (0-0.5) Basophils # (Auto) 0.04 K/uL (0-0.2) RDW Standard Deviation 51.4 fL (36.4-46.3) RDW Coefficient of Variation 14.5 % (11.5-14.5) Immature Granulocyte % (Auto) 0.6 % Immature Granulocyte # (Auto) 0.04 K/uL (0.00-0.02) Prothrombin Time 25.9 SECONDS (9.0-12.0) Prothromb Time International Ratio 2.3 (0.9-1.1) Activated Partial Thromboplast Time 37.8 SECONDS (21.0-31.0) Partial Thromboplastin Ratio 1.5 Anion Gap 7.0 mmol/L (3-11) Est Creatinine Clear Calc Drug Dose 36.0 ml/min Estimated GFR () 62.4 Estimated GFR (Non- 53.9 BUN/Creatinine Ratio 19.4 (10-20) Calcium Level 8.6 mg/dl (8.5-10.1) Magnesium Level 2.3 mg/dl (1.8-2.4) Total Bilirubin 0.8 mg/dl (0.2-1) Direct Bilirubin mg/dl (0-0.2) Aspartate Amino Transf (AST/SGOT) 28 U/L (15-37) Alanine Aminotransferase (ALT/SGPT) 27 U/L (12-78) Alkaline Phosphatase 48 U/L (45-117) Troponin I < 0.015 ng/ml (0-0.045) Total Protein 6.4 gm/dl (6.4-8.2) Albumin 3.3 gm/dl (3.4-5.0) Lipase 135 U/L (73-393) Thyroid Stimulating Hormone (TSH) 3.180 uIu/ml (0.300-4.500) Chemistry Specimen Hemolysis Laboratory results reviewed by me ECG Indication: SOB/dyspnea Rate (beats per minute): 71 Rhythm: atrial fibrillation Findings: RBBB (incomplete), no acute ischemic change, left axis deviation ED Course 1329: The patient was evaluated in room A3. A complete history and physical exam was performed. Medical Decision Medication Reconciliation: I attest that I have personally reviewed the patient' s current medication list Blood pressure screening: Patient was found to have normal blood pressure on screening and does not require follow-up. Triage Nursing notes reviewed. The patient's presentation and history were concerning for swelling of the legs. Etiologies such as DVT, joint effusion, infection, trauma, muscular, lymphedema , idiopathic, CHF, as well as others were entertained. The patient was evaluated. She has small skin tear on the right foot. Her skin was dry. She noted having her socks with and I could not find any source of seeping or openings otherwise. She noted this was bilaterally. She denies feeling anything on her legs. She does have chronic venous changes. She has some edema but it is rather mild. She has CHF. She is on Bumex 0.5 mg daily. Patient had a chest x-ray performed. This revealed some mild CHF however the patient was not having any respiratory difficulty. She states her breathing was baseline. The patient had an unremarkable CBC and chemistry panel. Her urine dip was unremarkable. INR was therapeutic therefore additional testing regarding DVT was not done. She does not have stigmata of DVT. The patient is doing very well. I suspect that she has chronic edema from her chronic CHF but has no exacerbation at this time. The patient will double her Bumex today and tomorrow and then follow-up with her primary office. The patient felt very comfortable with this plan. The patient was given DYLAN stockings. If she worsens in any way she will be brought back to the Emergency Room. By the evaluation outlined above other emergent etiologies such as those listed in the differential, as well as others, were deemed relatively unlikely. The patient was educated about the findings as listed above. All questions were answered and the patient was pleased with the treatment. Return instructions were outlined and the patient was discharged in stable condition. The patient was referred to her PCP for follow-up for a recheck of the current condition. Impression Primary Impression: Bilateral lower extremity edema Scribe Attestation The scribe's documentation has been prepared under my direction and personally reviewed by me in its entirety. I confirm that the note above accurately reflects all work, treatment, procedures, and medical decision making performed by me. Departure Information Dispostion Home / Self-Care Referrals Carlos Enrique Yu M.D. (PCP) Patient Instructions My [facility] Additional Instructions Take 1 mg of Bumex today and 1 mg of Bumex tomorrow then resume normal 0.5 mg daily. Dermabond skin adhesive was used to close the wound. It should fall off in 5 to 10 days on its own. You do not did not need to keep it bandaged. Do not soak the wound for 8 hours. After 8 hours you may get it wet, but again do not soak it. Use the compression stockings and elevate your legs to help with swelling and edema. Continue the warfarin. Follow-up with your primary office on Saturday. Return to the ER for worsening leg swelling, redness, chest pain, difficulty breathing, fevers, vomiting, worsening of your condition, or as needed.
[2017-05-25 15:38] VITALS: BP 126/74; PULSE 68; O2SAT 95
[2017-05-25 15:38] LABS: MANUAL MICROSCOPIC REQUIRED? NO; REVIEW REQ? NO
== END 2017-05-25 15:40 | disposition home or self-care (01) ==
LOC: EDBD 12:52 → C.EDA 12:54
DX: R60.0 Localized edema (principal); I48.91 Unspecified atrial fibrillation; I45.10 Unspecified right bundle-branch block; I10 Essential (primary) hypertension; J44.9 Chronic obstructive pulmonary disease, unspecified; M81.0 Age-related osteoporosis without current pathological fracture; Z87.81 Personal history of (healed) traumatic fracture; Z90.710 Acquired absence of both cervix and uterus; Z90.721 Acquired absence of ovaries, unilateral; Z90.49 Acquired absence of other specified parts of digestive tract; Z98.49 Cataract extraction status, unspecified eye; Z98.890 Other specified postprocedural states; Z96.651 Presence of right artificial knee joint; Z96.652 Presence of left artificial knee joint; Z79.01 Long term (current) use of anticoagulants; Z79.899 Other long term (current) drug therapy; Z88.0 Allergy status to penicillin; Z88.2 Allergy status to sulfonamides; Z88.5 Allergy status to narcotic agent; Z88.6 Allergy status to analgesic agent; Z88.8 Allergy status to other drugs, medicaments and biological substances; Z91.011 Allergy to milk products; Z91.018 Allergy to other foods; Z80.9 Family history of malignant neoplasm, unspecified

== ENCOUNTER 2017-06-09 20:55 | Emergency (ER) | payer OTHER ==
[~2017-06-09] VITALS: Ht 160 cm; Wt 54.2 kg
[~2017-06-09 20:55] MED LIST changes: -DIGO0.122 PO; +LNX125 PO; -METR1GEL3 TOP; +MTRG45
[2017-06-09 20:59] VITALS: TEMP 36.7; Ht 160 cm; Wt 54.2 kg
--- NOTE | 2017-06-09 21:07 | EMERGENCY ROOM VISIT NOTE ---
History Report prepared by Mendez: Hernandez Topete Under the Supervision of: Dr. Chrystal Ascencio D.O. First contact with patient: 20:52 Chief Complaint: LEG PAIN,LEG INJURY Stated Complaint: LEG SWELLING History of Present Illness The patient is a 86 year old female who presents to the Emergency Room with complaints of left lower extremity swelling that began 5 hours ago. She is not in any pain currently; however, if anyone touches her leg, it causes her some pain. At this time, she was sitting in her recliner watching television. She was seen in the ER earlier this month for bilateral lower extremity swelling. When she was discharged, her water pill was increased from a half pill to a full pill. She has been taking this for the past ten days. She states that it has helped her, but her leg is still swollen. She notes that her leg intermittently feels either hot or cold with some tingling. She denies any recent injury, fevers, or other current symptoms. However, today three different times, she experienced left underarm pain. She is not feeling it now. She has a past medical history of congestive heart failure and a heart murmur. She takes Coumadin for her murmur. She had a blood clot in her leg 67 years ago , but she has been fine since. She wears oxygen at night. Source of History: patient Onset: 5 hours ago Position: leg (left) Symptom Intensity: mild Quality: other (Swelling) Timing: constant Associated Symptoms: No fevers Note: She experiences intermittent tingling, heat, and cold in the left leg. Review of Systems See HPI for pertinent positives & negatives. A total of 10 systems reviewed and were otherwise negative. 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 (6) Migraine (7) Nocturnal hypoxemia (8) Osteoporosis (9) Raynaud's phenomenon (10) Right heart failure Surgical Problems: (1) H/O oophorectomy (2) H/O thumb surgery (3) H/O: hysterectomy (4) History of cholecystectomy (5) Hx of cataract surgery (6) S/P appendectomy (7) S/P left knee arthroscopy (8) S/P right knee arthroscopy Family History Brain tumor MOTHER Hodgkin's lymphoma BROTHER Social History Smoking Status: Never Smoker Alcohol Use: none Drug Use: none Marital Status: Housing Status: lives alone Occupation Status: retired Current/Historical Medications Scheduled Bimatoprost (Lumigan), 1 DROP OPB HS Bumetanide (Bumex), 1 MG PO QAM Clindamycin Hcl (Cleocin), 300 MG PO before dental work Coenzyme Q10 (Ubidecarenone) (Co Q10), 100 MG PO DAILY Digoxin (Digoxin), 0.125 MG PO 5XWK Fexofenadine Hcl (Macarena), 180 MG PO QAM Fluticasone Prop/Salmeterol (Advair Diskus 500-50 Mcg/Dose), 1 PUFF INH BID Yglviivfamj-Ztiuokfnbdd-Iqk C- (Glucosamine Chondroitin), 1 TABLET PO NOON Home O2 Therapy (Oxygen), 2 LITERS NA HS Polyethylene Glycol 3350 (Miralax), 1 TBS PO BID Spironolactone (Aldactone), 25 MG PO QAM Warfarin Sodium (Coumadin), 3 MG PO 5XWK Warfarin Sodium (Coumadin), 1.5 MG PO 2XWK Scheduled PRN Ipratropium-Albuterol (Duoneb), 1 TREATMENT INH QID PRN for asthma Nitroglycerin (Nitrostat), 0.4 MG UT UD PRN for Chest Pain Triamcinolone Acet (Aristocort 0.1%), 1 APPLN TOP BID PRN for impairment of skin Miscellaneous Medications Metoprolol Succinate (Toprol Xl), 50 MG PO Metronidazole HCl (Metronidazole) Allergies Coded Allergies: Celecoxib (Verified Allergy, Intermediate, rash, blisters in mouth, eyes itching, 06/09/17) Ciprofloxacin (Verified Allergy, Intermediate, rash, 06/09/17) Famciclovir (Verified Allergy, Intermediate, RASH, 06/09/17) Fluticasone (Verified Allergy, Intermediate, RASH, 06/09/17) Furosemide (Verified Allergy, Intermediate, RASH, 06/09/17) Metaxalone (Verified Allergy, Intermediate, RASH, 06/09/17) RASH Naproxen (Verified Allergy, Intermediate, RASH, 06/09/17) RASH Oat Rolled (Unverified Allergy, Intermediate, WELTS, 06/09/17) OATMEAL PACKETS Oxycodone (Verified Allergy, Intermediate, RASH ON NECK, 06/09/17) Sulfa Antibiotics (Verified Allergy, Intermediate, HIVES, 06/09/17) Acetaminophen (Verified Allergy, Mild, RASH, 06/09/17) RASH Carboxymethylcellulose (Verified Allergy, Mild, ITCHINESS AND REDNESS OF EYES, 06/09/17) Levofloxacin (Verified Allergy, Mild, RASH, 06/09/17) RASH PER PT/MIGUEL ON PCU - HAS TAKEN CIPRO IN PAST Aspartame (Verified Allergy, Unknown, 'passed out after taking', 06/09/17) Cefdinir (Verified Allergy, Unknown, unknown, 06/09/17) Diphenhydramine (Verified Allergy, Unknown, 'passed out after taking', ) Penicillins (Verified Allergy, Unknown, RASH, 06/09/17) RASH Potassium Chloride (Verified Allergy, Unknown, RASH, 06/09/17) Pseudoephedrine (Verified Allergy, Unknown, 'passed out after taking', ) Sodium Benzoate (Verified Allergy, Unknown, unknown, 06/09/17) Meridian (Unverified Allergy, Unknown, RASH, 06/09/17) Sulfasalazine (Verified Allergy, Unknown, rash, 06/09/17) Tomato (Unverified Allergy, Unknown, RASH, 06/09/17) Valacyclovir (Verified Allergy, Unknown, RASH, 06/09/17) Adhesives (Verified Adverse Reaction, Mild, skin irritation, 06/09/17) Brimonidine (Verified Adverse Reaction, Mild, RED EYES, 06/09/17) RED EYES Brompheniramine (Verified Adverse Reaction, Mild, 'passed out' per pt, ) Ketorolac (Verified Adverse Reaction, Mild, RED EYES, 06/09/17) RED EYES Pneumococcal Vaccines (Verified Adverse Reaction, Mild, LOCAL SWELLING, ) Dairy (Verified Adverse Reaction, Unknown, bloating,nausea,diarrhea, ) Lactose (Verified Adverse Reaction, Unknown, GI upset, 06/09/17) Physical Exam Vital Signs Date Time Temp Pulse Resp B/P (MAP) Pulse Ox O2 Delivery O2 Flow Rate FiO2 06/09/17 23:18 72 18 123/77 96 06/09/17 22:22 81 18 130/79 96 Room Air 06/09/17 20:59 36.7 81 18 117/65 92 Room Air Physical Exam GENERAL: alert, well appearing, well nourished, no distress, non-toxic EYE EXAM: normal conjunctiva, PERRL and EOM's grossly intact OROPHARYNX: no exudate, no erythema, lips, buccal mucosa, and tongue normal, mucous membranes are mildly dry NECK: supple, no nuchal rigidity, no adenopathy, non-tender LUNGS: Clear to auscultation. Normal chest wall mechanics HEART: Systolic ejection murmur, S1 normal and S2 normal ABDOMEN: abdomen soft, non-tender, normo-active bowel sounds, no masses, no rebound or guarding. BACK: Back is symmetrical on inspection and there is no deformity, no midline tenderness, no CVA tenderness. SKIN: no rashes and no bruising UPPER EXTREMITIES: upper extremities are grossly normal. LOWER EXTREMITIES: Bilateral lower extremity edema, left greater than right. Chronic venous stasis changes in lower extremities. NEURO EXAM: Normal sensorium, cranial nerves II-XII grossly intact, normal speech, no gross weakness of arms, no gross weakness of legs. Medical Decision & Procedures ER Provider Diagnostic Interpretation: Radiology results have been interpreted by the radiologist and reviewed by me. LEFT VENOUS DOPP LOWER EXT UNILAT CLINICAL HISTORY: ll. swelling pain. Edema. TECHNIQUE: Venous Doppler COMPARISON STUDY: None FINDINGS: Linear stranding involving the mid left femoral vein. This appears to relate to chronic venous scarring. Study is negative for acute deep venous thrombosis. Compressibility and augmentation characteristics are unremarkable. IMPRESSION: 1. Study is negative for acute deep venous anastomosis. 2. Minimal chronic venous scarring mid left femoral vein The above report was generated using voice recognition software. It may contain grammatical, syntax or spelling errors. Electronically signed by: Carlos Enrique Valentino M.D. 06/09/2017 10:23 PM Dictated Date/Time: 06/09/2017 10:22 PM CHEST ONE VIEW PORTABLE CLINICAL HISTORY: left chest pain chest pain COMPARISON STUDY: 05/25/2017 FINDINGS: Moderate stable cardiomegaly. Chronic linear atelectasis left midlung. No acute or superimposed infiltrate. IMPRESSION: Chronic change. No acute process. The above report was generated using voice recognition software. It may contain grammatical, syntax or spelling errors. Electronically signed by: Carlos Enrique Valentino M.D. 06/09/2017 9:24 PM Dictated Date/Time: 06/09/2017 9:24 PM Laboratory Results 06/09/17 21:15 Red Blood Count 4.24, Mean Corpuscular Volume 96.5, Mean Corpuscular Hemoglobin 32.3, Mean Corpuscular Hemoglobin Concent 33.5, Mean Platelet Volume 11.3, Neutrophils (%) (Auto) 58.5, Lymphocytes (%) (Auto) 25.4, Monocytes (%) (Auto) 10.1, Eosinophils (%) (Auto) 4.1, Basophils (%) (Auto) 0.8, Neutrophils # (Auto ) 3.71, Lymphocytes # (Auto) 1.61, Monocytes # (Auto) 0.64, Eosinophils # (Auto ) 0.26, Basophils # (Auto) 0.05 06/09/17 21:15 Test 06/09/17 21:15 White Blood Count 6.34 K/uL (4.8-10.8) Red Blood Count 4.24 M/uL (4.2-5.4) Hemoglobin 13.7 g/dL (12.0-16.0) Hematocrit 40.9 % (37-47) Mean Corpuscular Volume 96.5 fL (80-100) Mean Corpuscular Hemoglobin 32.3 pg (25-34) Mean Corpuscular Hemoglobin Concent 33.5 g/dl (32-36) Platelet Count 147 K/uL (130-400) Mean Platelet Volume 11.3 fL (7.4-10.4) Neutrophils (%) (Auto) 58.5 % Lymphocytes (%) (Auto) 25.4 % Monocytes (%) (Auto) 10.1 % Eosinophils (%) (Auto) 4.1 % Basophils (%) (Auto) 0.8 % Neutrophils # (Auto) 3.71 K/uL (1.4-6.5) Lymphocytes # (Auto) 1.61 K/uL (1.2-3.4) Monocytes # (Auto) 0.64 K/uL (0.11-0.59) Eosinophils # (Auto) 0.26 K/uL (0-0.5) Basophils # (Auto) 0.05 K/uL (0-0.2) RDW Standard Deviation 51.2 fL (36.4-46.3) RDW Coefficient of Variation 14.4 % (11.5-14.5) Immature Granulocyte % (Auto) 1.1 % Immature Granulocyte # (Auto) 0.07 K/uL (0.00-0.02) Prothrombin Time 32.7 SECONDS (9.0-12.0) Prothromb Time International Ratio 2.9 (0.9-1.1) Anion Gap 7.0 mmol/L (3-11) Est Creatinine Clear Calc Drug Dose 32.8 ml/min Estimated GFR () 58.7 Estimated GFR (Non- 50.6 BUN/Creatinine Ratio 25.7 (10-20) Calcium Level 9.3 mg/dl (8.5-10.1) Total Bilirubin 0.4 mg/dl (0.2-1) Aspartate Amino Transf (AST/SGOT) 19 U/L (15-37) Alanine Aminotransferase (ALT/SGPT) 27 U/L (12-78) Alkaline Phosphatase 56 U/L (45-117) Troponin I < 0.015 ng/ml (0-0.045) Pro-B-Type Natriuretic Peptide 1770 pg/ml (0-1800) Total Protein 6.5 gm/dl (6.4-8.2) Albumin 3.3 gm/dl (3.4-5.0) Globulin 3.2 gm/dl (2.5-4.0) Albumin/Globulin Ratio 1.0 (0.9-2) Laboratory results per my review. ED Course 2051: The patient was evaluated in room A12B. A complete history and physical exam was performed. 2229: After reassessment, the patient is doing fine. 2332: Upon reevaluation, the patient is feeling better. I discussed the findings and the treatment plan with the patient. She verbalizes agreement and understanding. She was discharged home. Medical Decision Differential diagnosis: Etiologies such as DVT, musculoskeletal, infection, joint effusion, trauma, lymphedema, idiopathic, CHF, as well as others were entertained. Discussed patient elevation of her legs, continue use of her medications, close follow-up with her family doctor. No evidence for acute congestive heart failure, Doppler negative the patient, denies with a therapeutic INR. She denies any recent trauma. Patient able and related with a steady gait, and denies any pain in the legs. Discussed with patient symptoms to watch and return for, she verbalized understanding was agreeable with plan. Doubt arterial insufficiency. No evidence of cellulitis/infection. Medication Reconcilliation Current Medication List: was personally reviewed by me Blood Pressure Screening Patient's blood pressure: Normal blood pressure Impression Primary Impression: Bilateral lower extremity edema Additional Impression: Anticoagulated on Coumadin Scribe Attestation The scribe's documentation has been prepared under my direction and personally reviewed by me in its entirety. I confirm that the note above accurately reflects all work, treatment, procedures, and medical decision making performed by me. Departure Information Dispostion Home / Self-Care Referrals Carlos Enrique Yu M.D. (PCP) Forms HOME CARE DOCUMENTATION FORM, IMPORTANT VISIT INFORMATION Patient Instructions My [facility] Additional Instructions Please call and follow-up with your family doctor about the leg swelling. Please continue your regular medications. Your INR tonight was 2.9. If you have any worsening swelling, develop leg pain, fevers, back pain, abdominal pain , vomiting, are unable to walk, develop numbness or tingling, or you have any other new or concerning symptoms, please return to the emergency room. Problem Qualifiers
[2017-06-09 21:22] LABS: BASO % 0.8 %; BASO ABS # 0.05 K/uL (0-0.2); COMPLETE YES; EOS % 4.1 %; HEMATOCRIT 40.9 % (37-47); IG% 1.1 %; LYMPH % 25.4 %; LYMPH ABS # 1.61 K/uL (1.2-3.4); MEAN CELL VOLUME 96.5 fL (80-100); MEAN CORPUSCULAR HEMOGLOBIN 32.3 pg (25-34); MEAN CORPUSCULAR HGB CONC 33.5 g/dl (32-36); MEAN PLATELET VOLUME 11.3 fL (7.4-10.4); MONO % 10.1 %; NEUT % 58.5 %; PLATELET COUNT 147 K/uL (130-400); RED BLOOD COUNT 4.24 M/uL (4.2-5.4); WHITE BLOOD COUNT 6.34 K/uL (4.8-10.8)
--- NOTE | 2017-06-09 21:26 | DIAGNOSTIC IMAGING REPORT ---
CHEST ONE VIEW PORTABLE CLINICAL HISTORY: left chest pain chest pain COMPARISON STUDY: 05/25/2017 FINDINGS: Moderate stable cardiomegaly. Chronic linear atelectasis left midlung. No acute or superimposed infiltrate. IMPRESSION: Chronic change. No acute process. The above report was generated using voice recognition software. It may contain grammatical, syntax or spelling errors. Electronically signed by: Carlos Enrique Valentino M.D. 06/09/2017 9:24 PM Dictated Date/Time: 06/09/2017 9:24 PM
[2017-06-09] MEDS ORDERED: METO-217 PO (21:37)
[2017-06-09 21:39] LABS: INR 2.9 (0.9-1.1); PROTHROMBIN TIME (PATIENT) 32.7 SECONDS (9.0-12.0)
[2017-06-09 22:05] LABS: ALT/SGPT 27 U/L (12-78); BLOOD UREA NITROGEN 26 mg/dl (7-18); BUN/CREATININE RATIO 25.7 (10-20); CALCIUM 9.3 mg/dl (8.5-10.1); CARBON DIOXIDE 32 mmol/L (21-32); CHLORIDE 101 mmol/L (98-107); GLUCOSE 124 mg/dl (70-99); POTASSIUM 3.7 mmol/L (3.5-5.1); SODIUM 140 mmol/L (136-145)
[2017-06-09 22:11] LABS: ALKALINE PHOSPHATASE 56 U/L (45-117); AST/SGOT 19 U/L (15-37)
--- NOTE | 2017-06-09 22:25 | DIAGNOSTIC IMAGING REPORT ---
LEFT VENOUS DOPP LOWER EXT UNILAT CLINICAL HISTORY: ll. swelling pain. Edema. TECHNIQUE: Venous Doppler COMPARISON STUDY: None FINDINGS: Linear stranding involving the mid left femoral vein. This appears to relate to chronic venous scarring. Study is negative for acute deep venous thrombosis. Compressibility and augmentation characteristics are unremarkable. IMPRESSION: 1. Study is negative for acute deep venous anastomosis. 2. Minimal chronic venous scarring mid left femoral vein The above report was generated using voice recognition software. It may contain grammatical, syntax or spelling errors. Electronically signed by: Carlos Enrique Valentino M.D. 06/09/2017 10:23 PM Dictated Date/Time: 06/09/2017 10:22 PM
[2017-06-09 23:18] VITALS: BP 123/77; PULSE 72; O2SAT 96
== END 2017-06-09 23:19 | disposition home or self-care (01) ==
LOC: EDBD 20:55 → C.EDA 20:57
DX: R60.0 Localized edema (principal); M79.672 Pain in left foot; R01.1 Cardiac murmur, unspecified; I48.2 Chronic atrial fibrillation; I10 Essential (primary) hypertension; M81.0 Age-related osteoporosis without current pathological fracture; J44.9 Chronic obstructive pulmonary disease, unspecified; Z79.01 Long term (current) use of anticoagulants; Z79.899 Other long term (current) drug therapy; Z99.81 Dependence on supplemental oxygen; Z80.7 Family history of other malignant neoplasms of lymphoid, hematopoietic and related tissues; Z83.49 Family history of other endocrine, nutritional and metabolic diseases; Z84.89 Family history of other specified conditions

== ENCOUNTER → 2017-10-09 | Outpatient (CLI) | payer OTHER ==
[~2017-10-09] MED LIST changes: +METO-217 PO; -TPRSR50 PO
--- NOTE | 2017-10-09 11:50 | DIAGNOSTIC IMAGING REPORT ---
CHEST 2 VIEWS ROUTINE CLINICAL HISTORY: 86 years-old Female presenting with R05 [id number] Congestive heart [id number]. TECHNIQUE: PA and lateral views of the chest were obtained. COMPARISON: 06/09/2017. FINDINGS: Atherosclerosis of aortic arch. Tortuosity of the descending thoracic aorta. Cardiac silhouette enlarged, unchanged. Mild prominence of pulmonary vasculature primarily in the left upper lung. Minimal linear opacities noted in the mid lungs bilaterally as well as at the right lung base. These are not significantly changed from prior exam. No new focal infiltrate. No pleural effusion or pneumothorax. Dextrocurvature of the thoracic spine as well as slightly exaggerated kyphosis. Persistent compression deformities at 2 lower thoracic levels as noted previously on chest CT from 02/11/2017. Cholecystectomy clips. IMPRESSION: 1. Chronic bandlike opacities in the mid lungs and right lung base likely scarring or atelectasis. No acute cardiopulmonary disease. 2. Cardiomegaly. 3. Compression deformities of 2 lower thoracic vertebral body levels as on prior CT from February. Electronically signed by: Marlon Coyle M.D. 10/09/2017 11:49 AM Dictated Date/Time: 10/09/2017 11:46 AM
== END | disposition home or self-care (01) ==
LOC: C.RAD1850 11:23
PROVIDERS: ATTEND Internal Medicine Pulmonary Disease
DX: I50.9 Heart failure, unspecified (principal); R05 Cough

== ENCOUNTER 2017-11-05 18:03 | Emergency (ER) | payer OTHER ==
[~2017-11-05] VITALS: Ht 154.9 cm; Wt 59.8 kg
[~2017-11-05 18:03] MED LIST changes: -BUME1TAB PO; -COEN100C28 PO; -METO-217 PO; -MTRG45; +MTRG45 TOP
[2017-11-05 18:12] VITALS: TEMP 36.7; Ht 154.9 cm; Wt 59.8 kg
--- NOTE | 2017-11-05 20:04 | DIAGNOSTIC IMAGING REPORT ---
CHEST ONE VIEW PORTABLE CLINICAL HISTORY: Chest pain. COMPARISON STUDY: Chest CT February 11, 2017 and chest radiograph October 09, 2017. FINDINGS: Moderate cardiomegaly is unchanged. There is no evidence of pulmonary edema. Linear bilateral opacities favor atelectasis. No pneumothorax or pleural effusion is noted. A calcified right lower lung nodule is noted. IMPRESSION: No acute cardiopulmonary findings. No change in appearance of the chest. Electronically signed by: Anthony Knight M.D. 11/05/2017 8:03 PM Dictated Date/Time: 11/05/2017 8:02 PM
[2017-11-05] MEDS ORDERED: BUME1TAB PO (20:07)
[2017-11-05] MEDS ORDERED: ULT50 PO (20:16)
[2017-11-05] MEDS ORDERED: POLY335019 PO (20:16)
[2017-11-05] MEDS ORDERED: CHOL100027 PO (20:16)
[2017-11-05] MEDS ORDERED: WARF-285 PO (20:16)
[2017-11-05] MEDS ORDERED: WARF3TAB6 PO (20:16)
[2017-11-05 20:22] LABS: BASO % 0.2 %; BASO ABS # 0.02 K/uL (0-0.2); COMPLETE YES; EOS % 2.5 %; HEMATOCRIT 40.7 % (37-47); LYMPH % 17.4 %; LYMPH ABS # 1.61 K/uL (1.2-3.4); MEAN CELL VOLUME 95.5 fL (80-100); MEAN CORPUSCULAR HEMOGLOBIN 31.9 pg (25-34); MEAN CORPUSCULAR HGB CONC 33.4 g/dl (32-36); MONO % 6.7 %; NEUT % 72.2 %; PLATELET COUNT 166 K/uL (130-400); RED BLOOD COUNT 4.26 M/uL (4.2-5.4); WHITE BLOOD COUNT 9.26 K/uL (4.8-10.8)
[2017-11-05 20:31] LABS: INR 3.1 (0.9-1.1); PROTHROMBIN TIME (PATIENT) 31.7 SECONDS (9.0-12.0)
[2017-11-05 20:36] LABS: URINE APPEARANCE CLEAR (CLEAR); URINE BILIRUBIN NEG (NEG); URINE COLOR YELLOW; URINE EPITHELIAL CELL AUTO 20-30 /lpf (0-5); URINE NITRITE NEG (NEG); URINE PH 5.5 (4.5-7.5); URINE SPECIFIC GRAVITY 1.016 (1.000-1.030); UROBILINOGEN NEG (NEG); ZZUR CULT IF INDIC CLEAN CATCH NO
[2017-11-05 20:37] LABS: MANUAL MICROSCOPIC REQUIRED? NO; REVIEW REQ? NO
[2017-11-05 20:44] LABS: BLOOD UREA NITROGEN 27 mg/dl (7-18); BUN/CREATININE RATIO 27.3 (10-20); CALCIUM 8.6 mg/dl (8.5-10.1); CARBON DIOXIDE 30 mmol/L (21-32); CHLORIDE 100 mmol/L (98-107); GLUCOSE 108 mg/dl (70-99); POTASSIUM 3.3 mmol/L (3.5-5.1); SODIUM 138 mmol/L (136-145)
[2017-11-05] MEDS ORDERED: SPIR25TA89 PO (20:57)
[2017-11-05] MEDS ORDERED: WARF3TAB PO (20:57)
[2017-11-05] MEDS ORDERED: B-CO1CAP17 PO (21:00)
[2017-11-05] MEDS ORDERED: VITA400C3 PO (21:00)
[2017-11-05] MEDS ORDERED: DOCU-94 PO (21:00)
[2017-11-05] MEDS ORDERED: CALC500T72 PO (21:00)
[2017-11-05] MEDS ORDERED: MULT-513 PO (21:00)
--- NOTE | 2017-11-05 21:00 | EMERGENCY ROOM VISIT NOTE ---
History Report prepared by Mendez: Alex Blanca Under the Supervision of: Dr. Erlin Nicole M.D. First contact with patient: 19:14 Chief Complaint: CHEST PAIN Stated Complaint: CHEST PAIN Nursing Triage Summary: pt reports started with L side chest painseveral days ago and went to PCP today for UTI mentioned this to MD sent in for eval pt currently reports L side cp denies increased sob or radiation of pain. reports hx of CHF History of Present Illness The patient is a 86 year old female who presents to the Emergency Room with complaints of intermittent chest pain for several days. She states that taking deep breaths and pressure on her chest exacerbates the pain. Patient describes the pain as only lasting for a few seconds but still calls her attention to it. She states she was at her PCP today for possible UTI and was referred to the ED after explaining that she had been having chest pain. She adds that she has had burning when urinating that began 3 hours ago. Patient denies passing out, fevers, abdominal pain, or rashes. Patient says she has a history of heart problems but denies having any cardiac stents or previous heart attacks. She admits to having a stress test performed several years ago by Dr. Vasquez. She adds that she is currently on coumarin. Source of History: patient Onset: several days Timing: intermittent Modifying Factors (Worsening): exertion (deep breaths), other (Pressure on chest) Associated Symptoms: + urinary symptoms (Patient adds she has pain when urinating. ), No abdominal pain, No rash Review of Systems See HPI for pertinent positives & negatives. A total of 10 systems reviewed and were otherwise negative. 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 (6) Migraine (7) Nocturnal hypoxemia (8) Osteoporosis (9) Raynaud's phenomenon (10) Right heart failure Surgical Problems: (1) H/O oophorectomy (2) H/O thumb surgery (3) H/O: hysterectomy (4) History of cholecystectomy (5) Hx of cataract surgery (6) S/P appendectomy (7) S/P left knee arthroscopy (8) S/P right knee arthroscopy Family History Brain tumor MOTHER Hodgkin's lymphoma BROTHER Social History Smoking Status: Never Smoker Alcohol Use: none Drug Use: none Marital Status: Housing Status: lives alone Occupation Status: retired Current/Historical Medications Scheduled Bimatoprost (Lumigan), 1 DROP OPB HS Bumetanide (Bumex), 1 MG PO QAM Calcium Ascorbate (Vitamin C), 500 MG PO DAILY Cholecalciferol (Vitamin D 1000 Unit), 1,000 INTER.UNIT PO DAILY Clindamycin Hcl (Cleocin), 300 MG PO before dental work Coenzyme Q10 (Ubidecarenone) (Co Q10), 100 MG PO DAILY Digoxin (Digoxin), 0.125 MG PO 5XWK Fexofenadine Hcl (Macarena), 180 MG PO QAM Fluticasone Prop/Salmeterol (Advair Diskus 500-50 Mcg/Dose), 1 PUFF INH BID Lfnluicdtue-Ndupmmgxcjg-Nhi C- (Glucosamine Chondroitin), 1 TABLET PO NOON Home O2 Therapy (Oxygen), 2 LITERS NA HS Metronidazole HCl (Metronidazole), 1 APPLN TOP UD Multivitamins/Minerals (Mvi With Minerals), 1 TAB PO DAILY Polyethylene Glycol 3350 (Miralax), 17 GM PO BID Spironolactone (Aldactone), 25 MG PO DAILY Spironolactone (Aldactone), 25 MG PO 2XWK Vitamin B Cmplx/Vitc/Folic Ac (Nephrocaps), 1 CAP PO DAILY Vitamin E (Vitamin E 400 Iu), 400 INTER.UNIT PO DAILY Warfarin Sodium (Warfarin Sodium), 3 MG PO 4XWK Warfarin Sodium (Coumadin), 1.5 MG PO MONTHLY Scheduled PRN Docusate Sodium (Colace), 1 CAP PO BID PRN for Constipation Ipratropium-Albuterol (Duoneb), 1 TREATMENT INH QID PRN for asthma Nitroglycerin (Nitrostat), 0.4 MG UT UD PRN for Chest Pain Tramadol HCl (Tramadol HCl), 50 MG PO Q6 PRN for Pain Triamcinolone Acet (Aristocort 0.1%), 1 APPLN TOP BID PRN for impairment of skin Miscellaneous Medications Metoprolol Succinate (Toprol Xl), 50 MG PO Allergies Coded Allergies: Celecoxib (Verified Allergy, Intermediate, rash, blisters in mouth, eyes itching, 06/09/17) Ciprofloxacin (Verified Allergy, Intermediate, rash, 06/09/17) Famciclovir (Verified Allergy, Intermediate, RASH, 06/09/17) Fluticasone (Verified Allergy, Intermediate, RASH, 06/09/17) Furosemide (Verified Allergy, Intermediate, RASH, 06/09/17) Metaxalone (Verified Allergy, Intermediate, RASH, 06/09/17) RASH Naproxen (Verified Allergy, Intermediate, RASH, 06/09/17) RASH Oat Rolled (Unverified Allergy, Intermediate, WELTS, 06/09/17) OATMEAL PACKETS Oxycodone (Verified Allergy, Intermediate, RASH ON NECK, 06/09/17) Sulfa Antibiotics (Verified Allergy, Intermediate, HIVES, 06/09/17) Acetaminophen (Verified Allergy, Mild, RASH, 06/09/17) RASH Carboxymethylcellulose (Verified Allergy, Mild, ITCHINESS AND REDNESS OF EYES, 06/09/17) Levofloxacin (Verified Allergy, Mild, RASH, 06/09/17) RASH PER PT/MIGUEL ON PCU - HAS TAKEN CIPRO IN PAST Aspartame (Verified Allergy, Unknown, 'passed out after taking', 06/09/17) Cefdinir (Verified Allergy, Unknown, unknown, 06/09/17) Diphenhydramine (Verified Allergy, Unknown, 'passed out after taking', ) Penicillins (Verified Allergy, Unknown, RASH, 06/09/17) RASH Potassium Chloride (Verified Allergy, Unknown, RASH, 06/09/17) Pseudoephedrine (Verified Allergy, Unknown, 'passed out after taking', ) Sodium Benzoate (Verified Allergy, Unknown, unknown, 06/09/17) [place] (Unverified Allergy, Unknown, RASH, 06/09/17) Sulfasalazine (Verified Allergy, Unknown, rash, 06/09/17) Tomato (Unverified Allergy, Unknown, RASH, 06/09/17) Valacyclovir (Verified Allergy, Unknown, RASH, 06/09/17) Adhesives (Verified Adverse Reaction, Mild, skin irritation, 06/09/17) Brimonidine (Verified Adverse Reaction, Mild, RED EYES, 06/09/17) RED EYES Brompheniramine (Verified Adverse Reaction, Mild, 'passed out' per pt, ) Ketorolac (Verified Adverse Reaction, Mild, RED EYES, 06/09/17) RED EYES Pneumococcal Vaccines (Verified Adverse Reaction, Mild, LOCAL SWELLING, ) Dairy (Verified Adverse Reaction, Unknown, bloating,nausea,diarrhea, ) Lactose (Verified Adverse Reaction, Unknown, GI upset, 06/09/17) Physical Exam Vital Signs Date Time Temp Pulse Resp B/P (MAP) Pulse Ox O2 Delivery O2 Flow Rate FiO2 11/05/17 21:11 58 16 120/69 97 11/05/17 20:01 63 16 142/65 99 Room Air 11/05/17 18:12 36.7 75 18 126/62 95 Room Air Physical Exam GENERAL: Patient is elderly,well appearing and in no acute distress. HEENT: No acute trauma, normocephalic atraumatic, mucous membranes moist, no nasal congestion, no scleral icterus. NECK: No stridor, no adenopathy, no meningismus, trachea is midline. LUNGS: No dyspnea. Clear to auscultation and equal bilaterally. No wheeze, no rhonchi. CHEST: Tenderness to palpation to lower chest wall. HEART: Regular rate and rhythm. No murmurs, rubs, gallops appreciated. ABDOMEN: Soft, nontender, bowel sounds positive, no masses appreciated, no peritonitis. BACK: No midline tenderness, no CVA tenderness EXTREMITIES: Normal motion all extremities, no cyanosis, no edema. NEUROLOGIC: Alert and oriented, no acute motor or sensory deficits, no focal weakness, cranial nerves grossly intact. SKIN: Extensive bruising over arms and legs. No rash, no jaundice, no diaphoresis. Medical Decision & Procedures ER Provider Diagnostic Interpretation: Radiology results and stated below per my review and radiologist interpretation: CHEST ONE VIEW PORTABLE CLINICAL HISTORY: Chest pain. COMPARISON STUDY: Chest CT February 11, 2017 and chest radiograph October 09, 2017. FINDINGS: Moderate cardiomegaly is unchanged. There is no evidence of pulmonary edema. Linear bilateral opacities favor atelectasis. No pneumothorax or pleural effusion is noted. A calcified right lower lung nodule is noted. IMPRESSION: No acute cardiopulmonary findings. No change in appearance of the chest. Electronically signed by: Anthony Knight M.D. 11/05/2017 8:03 PM Laboratory Results 11/05/17 19:55 Red Blood Count 4.26, Mean Corpuscular Volume 95.5, Mean Corpuscular Hemoglobin 31.9, Mean Corpuscular Hemoglobin Concent 33.4, Mean Platelet Volume 12.0, Neutrophils (%) (Auto) 72.2, Lymphocytes (%) (Auto) 17.4, Monocytes (%) (Auto) 6.7, Eosinophils (%) (Auto) 2.5, Basophils (%) (Auto) 0.2, Neutrophils # (Auto) 6.69, Lymphocytes # (Auto) 1.61, Monocytes # (Auto) 0.62, Eosinophils # (Auto) 0.23, Basophils # (Auto) 0.02 11/05/17 19:55 Test 11/05/17 19:55 White Blood Count 9.26 K/uL (4.8-10.8) Red Blood Count 4.26 M/uL (4.2-5.4) Hemoglobin 13.6 g/dL (12.0-16.0) Hematocrit 40.7 % (37-47) Mean Corpuscular Volume 95.5 fL (80-100) Mean Corpuscular Hemoglobin 31.9 pg (25-34) Mean Corpuscular Hemoglobin Concent 33.4 g/dl (32-36) Platelet Count 166 K/uL (130-400) Mean Platelet Volume 12.0 fL (7.4-10.4) Neutrophils (%) (Auto) 72.2 % Lymphocytes (%) (Auto) 17.4 % Monocytes (%) (Auto) 6.7 % Eosinophils (%) (Auto) 2.5 % Basophils (%) (Auto) 0.2 % Neutrophils # (Auto) 6.69 K/uL (1.4-6.5) Lymphocytes # (Auto) 1.61 K/uL (1.2-3.4) Monocytes # (Auto) 0.62 K/uL (0.11-0.59) Eosinophils # (Auto) 0.23 K/uL (0-0.5) Basophils # (Auto) 0.02 K/uL (0-0.2) RDW Standard Deviation 51.7 fL (36.4-46.3) RDW Coefficient of Variation 14.9 % (11.5-14.5) Immature Granulocyte % (Auto) 1.0 % Immature Granulocyte # (Auto) 0.09 K/uL (0.00-0.02) Prothrombin Time 31.7 SECONDS (9.0-12.0) Prothromb Time International Ratio 3.1 (0.9-1.1) Urine Color YELLOW Urine Appearance CLEAR (CLEAR) Urine pH 5.5 (4.5-7.5) Urine Specific [place] 1.016 (1.000-1.030) Urine Protein NEG (NEG) Urine Glucose (UA) NEG (NEG) Urine Ketones NEG (NEG) Urine Occult Blood NEG (NEG) Urine Nitrite NEG (NEG) Urine Bilirubin NEG (NEG) Urine Urobilinogen NEG (NEG) Urine Leukocyte Esterase TRACE (NEG) Urine WBC (Auto) 1-5 /hpf (0-5) Urine RBC (Auto) 0-4 /hpf (0-4) Urine Hyaline Casts (Auto) 1-5 /lpf (0-5) Urine Epithelial Cells (Auto) 20-30 /lpf (0-5) Urine Bacteria (Auto) NEG (NEG) Anion Gap 7.0 mmol/L (3-11) Est Creatinine Clear Calc Drug Dose 32.9 ml/min Estimated GFR () 58.7 Estimated GFR (Non- 50.6 BUN/Creatinine Ratio 27.3 (10-20) Calcium Level 8.6 mg/dl (8.5-10.1) Troponin I < 0.015 ng/ml (0-0.045) Laboratory results as reviewed by me. ECG Indication: chest pain Rate (beats per minute): 64 Rhythm: atrial fibrillation Findings: no acute ischemic change Change: no significant change (to previous) ED Course 191: The patient was evaluated in room C11B. A complete history and physical exam was performed. 2100: Reevaluated the patient. Discussed results and discharge instructions. She verbalized understanding and agreement. The patient is ready for discharge. Medical Decision Differential: Cardiac Ischemia (STEMI, NSTEMI, Unstable Angina, etc), Aortic Dissection, Arrhythmia, Pulmonary Embolism, Pneumonia, Pneumothorax, MSK, Infectious, Pericarditis/Myocarditis, Esophageal Rupture, Gastrointestinal, amongst other pathologies entertained. 86 yr old female arrives for evaluation of left chest pain. Point pain that is clearly TTP and worse with movement. No rash not blisters. EKG normal. Trop negative and enough time to rule out cardiac. Already on coumadin thus I do not feel this is PE. No evidence dissection. Afib with good HR. UA is without evidence infection. She is stable and wishes to go home. Discussed symptoms requiring return. She and daughter comfortable with plan. Medication Reconcilliation Current Medication List: was personally reviewed by me Blood Pressure Screening Patient's blood pressure: Normal blood pressure Blood pressure disposition: Did not require urgent referral Impression Primary Impression: Left sided chest pain Additional Impression: Urinary Discomfort Scribe Attestation The scribe's documentation has been prepared under my direction and personally reviewed by me in its entirety. I confirm that the note above accurately reflects all work, treatment, procedures, and medical decision making performed by me. Departure Information Dispostion Home / Self-Care Referrals Carlos Enrique Yu M.D. (PCP) Forms HOME CARE DOCUMENTATION FORM, IMPORTANT VISIT INFORMATION Patient Instructions My [facility] Additional Instructions Keep well hydrated. Call 911 or return immediately if significant worsening pain, difficulty breathing, passing out, or other concerns. Follow up with your business center representative and you should discuss you urinary issues with your primary care provider. You may need to be evaluated by Urologist. We are always here to help. Problem Qualifiers
[2017-11-05 21:11] VITALS: BP 120/69; PULSE 58; O2SAT 97
[2017-11-05] MEDS ORDERED: METO-217 PO (21:37)
[2017-11-05] MEDS ORDERED: COEN100C28 PO (22:20)
== END 2017-11-05 21:12 | disposition home or self-care (01) ==
LOC: C.EDB 18:04 → C.EDC 21:12
DX: R07.9 Chest pain, unspecified (principal); R30.0 Dysuria; I48.91 Unspecified atrial fibrillation; J44.9 Chronic obstructive pulmonary disease, unspecified; I11.0 Hypertensive heart disease with heart failure; G43.909 Migraine, unspecified, not intractable, without status migrainosus; M81.0 Age-related osteoporosis without current pathological fracture; I73.00 Raynaud's syndrome without gangrene; Z80.9 Family history of malignant neoplasm, unspecified; Z79.01 Long term (current) use of anticoagulants; Z79.899 Other long term (current) drug therapy

== ENCOUNTER 2018-01-06 12:02 | Emergency (ER) | payer OTHER ==
[~2018-01-06] VITALS: Ht 154.9 cm; Wt 51.0 kg
[~2018-01-06 12:02] MED LIST changes: +B-CO1CAP17 PO; +BUME1TAB PO; +CALC500T72 PO; +CHOL100027 PO; +COEN100C28 PO; +DOCU-94 PO; +METO-217 PO; +MULT-513 PO; +POLY335019 PO; -POLY335025 PO; +ULT50 PO; +VITA400C3 PO; +WARF-285 PO
[2018-01-06 12:08] VITALS: TEMP 36.4; Ht 154.9 cm; Wt 51.0 kg
[2018-01-06 15:05] VITALS: BP 115/69; PULSE 81; O2SAT 95
--- NOTE | 2018-01-06 15:15 | EMERGENCY ROOM VISIT NOTE ---
History Report prepared by Marychuyibhenrik: Tevin Sabillon Under the Supervision of: Dr. Corbin Portillo M.D. First contact with patient: 12:42 Chief Complaint: OTHER COMPLAINT Stated Complaint: BLURRED VISION History of Present Illness The patient is a 87 year old white female with a past medical history of A-fib, HTN, COPD, migraines, heart failure, Raynaud's phenomenon, s/p hysterectomy, s/ p appendectomy, s/p cholecystectomy, s/p cataract surgery, left sided macular degeneration who presents to the ED with a cc of intermittent visual changes beginning four hours ago. Patient woke up without her symptoms, and developed them about 2.5 hours later. She describes the visual changes as "blurry vision" . Denies visual loss, or seeing "floaters". Visual changes are present in both eyes. The patient notes that she slept for 12 hours last night which is very abnormal for her. Negative numbness, weakness, tingling. Source of History: patient Onset: 4 hours ago Position: eye (bilateral) Quality: other ("blurry vision") Timing: intermittent Associated Symptoms: No weakness, No numbness Note: Negative: tingling, visual loss, or seeing "floaters". Review of Systems See HPI for pertinent positives and negatives. A total of ten systems were reviewed and were otherwise negative. 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 (6) Migraine (7) Nocturnal hypoxemia (8) Osteoporosis (9) Raynaud's phenomenon (10) Right heart failure Surgical Problems: (1) H/O oophorectomy (2) H/O thumb surgery (3) H/O: hysterectomy (4) History of cholecystectomy (5) Hx of cataract surgery (6) S/P appendectomy (7) S/P left knee arthroscopy (8) S/P right knee arthroscopy Family History Brain tumor MOTHER Hodgkin's lymphoma BROTHER Social History Smoking Status: Never Smoker Alcohol Use: none Drug Use: none Marital Status: Housing Status: lives alone Occupation Status: retired Current/Historical Medications Scheduled Bimatoprost (Lumigan), 1 DROP OPB HS Bumetanide (Bumex), 0.5 MG PO QAM Clindamycin Hcl (Cleocin), 300 MG PO before dental work Coenzyme Q10 (Ubidecarenone) (Co Q10), 100 MG PO DAILY Digoxin (Digoxin), 0.125 MG PO 5XWK Fexofenadine Hcl (Macarena), 180 MG PO QAM Fluticasone Prop/Salmeterol (Advair Diskus 500-50 Mcg/Dose), 1 PUFF INH BID Kmxudnzwwsm-Ivyltvetzec-Brh C- (Glucosamine Chondroitin), 1 TABLET PO NOON Home O2 Therapy (Oxygen), 2 LITERS NA HS Metronidazole HCl (Metronidazole), 1 APPLN TOP UD Polyethylene Glycol 3350 (Miralax), 17 GM PO BID Spironolactone (Aldactone), 25 MG PO DAILY Warfarin Sodium (Warfarin Sodium), 3 MG PO UD Warfarin Sodium (Coumadin), 1.5 MG PO UD Scheduled PRN Docusate Sodium (Colace), 1 CAP PO BID PRN for Constipation Ipratropium-Albuterol (Duoneb), 1 TREATMENT INH QID PRN for asthma Nitroglycerin (Nitrostat), 0.4 MG UT UD PRN for Chest Pain Triamcinolone Acet (Aristocort 0.1%), 1 APPLN TOP BID PRN for impairment of skin Miscellaneous Medications Metoprolol Succinate (Toprol Xl), 50 MG PO Allergies Coded Allergies: Celecoxib (Verified Allergy, Intermediate, rash, blisters in mouth, eyes itching, 01/06/18) Ciprofloxacin (Verified Allergy, Intermediate, rash, 01/06/18) Famciclovir (Verified Allergy, Intermediate, RASH, 01/06/18) Fluticasone (Verified Allergy, Intermediate, RASH, 01/06/18) Furosemide (Verified Allergy, Intermediate, RASH, 01/06/18) Metaxalone (Verified Allergy, Intermediate, RASH, 01/06/18) RASH Naproxen (Verified Allergy, Intermediate, RASH, 01/06/18) RASH Oat Rolled (Unverified Allergy, Intermediate, WELTS, 01/06/18) OATMEAL PACKETS Oxycodone (Verified Allergy, Intermediate, RASH ON NECK, 01/06/18) Sulfa Antibiotics (Verified Allergy, Intermediate, HIVES, 01/06/18) Acetaminophen (Verified Allergy, Mild, RASH, 01/06/18) RASH Carboxymethylcellulose (Verified Allergy, Mild, ITCHINESS AND REDNESS OF EYES, 01/06/18) Levofloxacin (Verified Allergy, Mild, RASH, 01/06/18) RASH PER PT/MIGUEL ON PCU - HAS TAKEN CIPRO IN PAST Aspartame (Verified Allergy, Unknown, 'passed out after taking', 01/06/18) Cefdinir (Verified Allergy, Unknown, unknown, 01/06/18) Diphenhydramine (Verified Allergy, Unknown, 'passed out after taking', ) Penicillins (Verified Allergy, Unknown, RASH, 01/06/18) RASH Potassium Chloride (Verified Allergy, Unknown, RASH, 01/06/18) Pseudoephedrine (Verified Allergy, Unknown, 'passed out after taking', ) Sodium Benzoate (Verified Allergy, Unknown, unknown, 01/06/18) [place] (Unverified Allergy, Unknown, RASH, 01/06/18) Sulfasalazine (Verified Allergy, Unknown, rash, 01/06/18) Tomato (Unverified Allergy, Unknown, RASH, 01/06/18) Valacyclovir (Verified Allergy, Unknown, RASH, 01/06/18) Adhesives (Verified Adverse Reaction, Mild, skin irritation, 01/06/18) Brimonidine (Verified Adverse Reaction, Mild, RED EYES, 01/06/18) RED EYES Brompheniramine (Verified Adverse Reaction, Mild, 'passed out' per pt, ) Ketorolac (Verified Adverse Reaction, Mild, RED EYES, 01/06/18) RED EYES Pneumococcal Vaccines (Verified Adverse Reaction, Mild, LOCAL SWELLING, ) Dairy (Verified Adverse Reaction, Unknown, bloating,nausea,diarrhea, ) Lactose (Verified Adverse Reaction, Unknown, GI upset, 01/06/18) Physical Exam Vital Signs Date Time Temp Pulse Resp B/P (MAP) Pulse Ox O2 Delivery O2 Flow Rate FiO2 01/06/18 15:05 81 21 115/69 95 01/06/18 14:10 57 17 96/52 96 Room Air 01/06/18 12:15 60 01/06/18 12:08 36.4 67 19 135/76 96 Room Air Physical Exam GENERAL: Awake, alert, well-appearing, NAD HENT: Normocephalic, atraumatic. EYES: Normal conjunctiva. Sclera non-icteric. Vision is 20/30 bilaterally. Pressure is 11 in right eye and 17 in left eye. NECK: Supple. No nuchal rigidity. FROM. RESPIRATORY: CTAB, no rhonchi, wheezing, crackles CARDIAC: RRR, no MRG ABDOMEN: Soft, NTND, BS+ MSK: No chest wall TTP, no LE edema NEURO: GCS 15, CN 2-12 intact, moves all 4s on command SKIN: No rash or jaundice noted. Medical Decision & Procedures ED Course 1333: The patient was evaluated in room C7. A complete history and physical exam was performed. 1445: I reevaluated the patient. Discussed results and discharge instructions: she verbalized understanding and agreement. The patient is ready for discharge. Medical Decision The patient is a 87 year old white female with a past medical history of A-fib, HTN, COPD, migraines, heart failure, Raynaud's phenomenon, s/p hysterectomy, s/ p appendectomy, s/p cholecystectomy, s/p cataract surgery, left sided macular degeneration who presents to the ED with a cc of intermittent visual changes beginning four hours ago. Differential diagnosis: Etiologies such as benign positional vertigo, dehydration, hypovolemia, anemia, tumor, infection, hypoglycemia, electrolyte abnormalities, cardiac sources, intracerebral event, toxicologic, neurologic, as well as others were entertained. Patient was seen and evaluated the bedside. Patient presents that she had some difficulty with her vision. Patient states that she noticed a change in her vision around 9 AM. Patient denies any double vision or floaters or flashing lights. Patient does complain of some blurry vision. Patient does have a history of macular degeneration. On exam the patient has no APD, EOMI, painless , no hyphema or hypopyon. Patient is able to grossly finger count and with a Snellen card is 20/30 bilaterally. Patient's pressures were normal. Given her fairly normal eyesight with normal eye pressures I do not believe that the patient requires further workup or treatment at this time. Patient was deemed suitable for outpatient follow-up and treatment. I did speak with case management in order to help arrange the patient's follow-up appointment with ophthalmology. I informed the patient of these findings and she was agreeable with this plan of care. Patient was given strict follow-up, discharge, and return precautions. All questions were answered. Patient was deemed suitable for outpatient follow-up at this time. Patient agreed with the plan of care and was safely discharged home. Medication Reconcilliation Current Medication List: was personally reviewed by me Blood Pressure Screening Patient's blood pressure: Normal blood pressure Blood pressure disposition: Did not require urgent referral Impression Primary Impression: Blurry vision Scribe Attestation The scribe's documentation has been prepared under my direction and personally reviewed by me in its entirety. I confirm that the note above accurately reflects all work, treatment, procedures, and medical decision making performed by me. Departure Information Dispostion Home / Self-Care Referrals Carlos Enrique Yu M.D. (PCP) Patient Instructions ED Blurred Vision, My [facility] Additional Instructions Please return to the emergency department if you have worsening or recurrent symptoms not amenable to at-home treatment. Please call for a follow-up appointment with her primary care physician. Please take your medications as prescribed. If you have other concerns and/or complaints please feel free to also call your primary care physician's office or return the ED for further evaluation, management, and treatment. Please follow-up with your primary terrazzo mechanic. Please return if you lose vision in your eyes, have double vision, see floaters, or flashing lights. Take your medications as prescribed. You have been examined and treated today on an emergency basis only. This is not a substitute for, or an effort to provide, complete comprehensive medical care. It is impossible to recognize and treat all injuries or illnesses in a single emergency department visit. It is therefore important that you follow up closely with [facility], your PCP, and/or your specialist(s). Call as soon as possible for an appointment. Thank you for your time and consideration. I look forward to speaking with you again soon. Please don't hesitate to call us if you have any questions.
== END 2018-01-06 15:35 | disposition home or self-care (01) ==
LOC: EDBD 12:02 → C.EDC 12:04
DX: H53.8 Other visual disturbances (principal); I48.91 Unspecified atrial fibrillation; J44.9 Chronic obstructive pulmonary disease, unspecified; I10 Essential (primary) hypertension; M19.90 Unspecified osteoarthritis, unspecified site; Z79.01 Long term (current) use of anticoagulants; Z51.81 Encounter for therapeutic drug level monitoring; Z88.8 Allergy status to other drugs, medicaments and biological substances; Z91.018 Allergy to other foods; Z91.011 Allergy to milk products; Z88.0 Allergy status to penicillin; Z88.5 Allergy status to narcotic agent